=== PATIENT | female | born 1955 | race Caucasian/White ===

== ENCOUNTER 2019-02-19 18:40 | Emergency (ER) | payer MEDICARE ==
--- NOTE | 2019-02-19 19:05 | ER Document Report ---
ED Medical Screen (RME) - General Chief Complaint: Fall Stated Complaint: FALL/DIZZINESS Time Seen by Provider: 02/19/19 19:00 - [facility] Notes: 02/19/19 19:03 Patient is a 63-year-old female with a history of COPD, CABG 1 year ago erasmo roximately, hypertension, CHF who presents complaining of having an episode of dizziness and falling to the ground prior to arrival. Patient states that she got up and was walking towards the door when she felt dizzy and fell to the ground without losing consciousness. Patient states that her legs felt really weak at that time. She did not injure any other part of her body that she is aware of. Patient states that she has chronic issues with shortness of breath but nothing acute. Her Accu-Chek at that time was 94. She is otherwise been able to eat and drink without difficulty. She is urinating normally. No other concerns or complaints. Patient has not had recurrence of the dizziness. Denies KAPLAN, fever, neck pain, URI, CP, SOB, Abd pain, dysuria, back pain, or rash. I have treated and performed a rapid initial assessment of this patient. A comprehensive ED assessment and evaluation of the patient, analysis of test results and completion of medical decision making process will be conducted by additional ED providers. PHYSICAL EXAMINATION: GENERAL: Well-appearing, well-nourished and in no acute distress. A&Ox4. Answers questions appropriately. LUNGS: diminished at base b/l. prolonged expiration. HEART: Regular rate and rhythm without murmurs, rubs, gallops. Extremities: 2+ pitting edema b/l LE's. NEUROLOGICAL: Normal speech, normal gait. PSYCH: Normal mood, normal affect. - Related Data Allergies/Adverse Reactions: Penicillins Allergy (Verified 02/19/19 18:42) Physical Exam - Vital signs Vitals: Temp Pulse Resp BP Pulse Ox 97.6 F 113 H 22 H 159/66 H 93 02/19/19 18:44 02/19/19 18:44 02/19/19 18:44 02/19/19 18:44 02/19/19 18:44 Course - Vital Signs Vital signs: Temp Pulse Resp BP Pulse Ox 97.6 F 113 H 22 H 159/66 H 93 02/19/19 18:44 02/19/19 18:44 02/19/19 18:44 02/19/19 18:44 02/19/19 18:44
[2019-02-19] MEDS ORDERED: NORMAL SALINE 1000 ML 1,000 ML IV ONE (19:06)
--- NOTE | 2019-02-19 19:37 | RADIOLOGY REPORT (SQ) ---
EXAM DESCRIPTION: CHEST SINGLE VIEW COMPLETED DATE/TIME: 02/19/2019 7:22 pm REASON FOR STUDY: dizziness COMPARISON: None. NUMBER OF VIEWS: One view. TECHNIQUE: Single frontal radiographic view of the chest acquired. LIMITATIONS: None. FINDINGS: LUNGS AND PLEURA: No consolidation, masses or pneumothorax. No significant pleural effusio n. MEDIASTINUM AND HILAR STRUCTURES: Age-appropriate. HEART AND VASCULAR STRUCTURES: Prior CABG. BONES: No acute findings. HARDWARE: CABG hardware. OTHER: No other significant finding. IMPRESSION: No consolidation or significant pleural effusion. TECHNICAL DOCUMENTATION: JOB ID: [id number] [place]-72 2010 [email or web address]- All Rights Reserved Reading location - IP/workstation name: [employer]
[2019-02-19 19:43] LABS: ABSOLUTE EOSINOPHILS # (AUTO) 0.1 10^3/uL (0.0-0.6); ABSOLUTE LYMPHOCYTES (AUTO) 0.8 10^3/uL (0.5-4.7); ABSOLUTE MONOCYTES (AUTO) 0.7 10^3/uL (0.1-1.4); BASOPHILS % (AUTO) 0.4 % (0-2); EOSINOPHILS % (AUTO) 1.6 % (0-6); HEMATOCRIT 34.3 % (36.0-47.0); HEMOGLOBIN 10.4 g/dL (12.0-15.5); LYMPHOCYTES % (AUTO) 11.9 % (13-45); MEAN CORPUSCULAR HGB CONC 30.3 g/dL (32.0-36.0); MONOCYTES % (AUTO) 10.9 % (3-13); PLATELET COUNT 181 10^3/uL (150-450); RED BLOOD COUNT 5.77 10^6/uL (3.72-5.28); SEGMENTED NEUTROPHILS % (AUTO) 75.2 % (42-78); TOTAL CELLS COUNTED % (AUTO) 100 %; WHITE BLOOD COUNT 6.7 10^3/uL (4.0-10.5)
[2019-02-19 19:44] LABS: APPEARANCE,URINE CLEAR; BILIRUBIN,URINE NEGATIVE (NEGATIVE); COLOR,URINE YELLOW; GLUCOSE, URINE NEGATIVE (NEGATIVE); KETONES,URINE NEGATIVE (NEGATIVE); LEUKOCYTE ESTERASE,URINE NEGATIVE (NEGATIVE); NITRITE,URINE NEGATIVE (NEGATIVE); PROTEIN,URINE NEGATIVE (NEGATIVE); URINE SPECIFIC GRAVITY 1.011; UROBILINOGEN,URINE NEGATIVE mg/dL (<2.0)
[2019-02-19 20:02] LABS: ALANINE AMINOTRANSFERASE 20 U/L (9-52); ALBUMIN 3.8 g/dL (3.5-5.0); ALKALINE PHOSPHATASE 114 U/L (38-126); ANION GAP 6 (5-19); ASPARTATE AMINO TRANSFERASE 24 U/L (14-36); BILIRUBIN,DIRECT 0.2 mg/dL (0.0-0.4); BILIRUBIN,TOTAL 0.7 mg/dL (0.2-1.3); BLOOD UREA NITROGEN 20 mg/dL (7-20); CALCIUM 9.5 mg/dL (8.4-10.2); CARBON DIOXIDE 32 mmol/L (22-30); CHLORIDE 103 mmol/L (98-107); GLUCOSE 125 mg/dL (75-110); POTASSIUM 3.7 mmol/L (3.6-5.0); SODIUM 140.5 mmol/L (137-145); TOTAL PROTEIN 6.8 g/dL (6.3-8.2)
[2019-02-19 20:13] LABS: NT PRO BNP 742 pg/mL (5-900)
[2019-02-19 20:14] LABS: TROPONIN I < 0.012 ng/mL
[2019-02-19 20:18] LABS: ANISOCYTOSIS 3+
[2019-02-19 20:19] LABS: OVALOCYTES 1+; POIKILOCYTOSIS 2+; TARGET CELLS SLIGHT
[2019-02-19 20:20] LABS: MEAN CORPUSCULAR VOLUME 59 fl (80-97)
[2019-02-19 20:23] LABS: PLATELET COMMENT ADEQUATE
--- NOTE | 2019-02-19 22:05 | ER Document Report ---
ED General - General Chief Complaint: Fall Stated Complaint: FALL/DIZZINESS Time Seen by Provider: 02/19/19 19:00 Notes: Patient is a pleasant 63-year-old female who is down visiting from [place]. Patient has a history of COPD. She does not smoke. She is down visiting her daughter. Today she got up out of bed to go to dinner. When she did she fell on the floor. She did pass out. Patient admits that she has not been eating or drinking much today. She does feel that she is will be dehydrated. Her daughter says that she does get short of breath when she gets up and walks around. This is been ongoing for a long period time. Her doctor at home want to place her on supplement oxygen but the patient held off until because her was sick. Her did recently . She has not followed back up with her doctor regards to being placed on supplemental oxygen. Patient denies any focal weakness or numbness. No chest pain. No shortness of breath. No headache. No other complaints at this time. - Related Data Allergies/Adverse Reactions: Penicillins Allergy (Verified 02/19/19 18:42) Past Medical History - Social History Smoking Status: Former Smoker Chew tobacco use (# tins/day): No Frequency of alcohol use: None Drug Abuse: None Family History: Reviewed & Not Pertinent Patient has suicidal ideation: No Patient has homicidal ideation: No Renal/ Medical History: Denies: Hx Peritoneal Dialysis Review of Systems - Review of Systems Notes: My Normal Review Basic REVIEW OF SYSTEMS: CONSTITUTIONAL : Denies fever, chills, or sweats. Denies recent illness. CARDIOVASCULAR: Denies chest pain. RESPIRATORY: Denies cough, cold, or chest congestion. Denies shortness of breath, difficulty breathing, or wheezing. GASTROINTESTINAL: Denies abdominal pain. Denies nausea, vomiting, or diarrhea. GENITOURINARY: Denies difficulty urinating, painful urination, burning, frequency, or blood in urine. MUSCULOSKELETAL: Lower back pain SKIN: Denies rash or skin lesions. NEUROLOGICAL: Syncopal episode. Denies headache. Denies weakness or paralysis or loss of use of either side. Denies problems with gait or speech. Denies sensory or motor loss. ALL OTHER SYSTEMS REVIEWED AND NEGATIVE. Physical Exam - Vital signs Vitals: Temp Pulse Resp BP Pulse Ox 97.6 F 113 H 22 H 159/66 H 93 02/19/19 18:44 02/19/19 18:44 02/19/19 18:44 02/19/19 18:44 02/19/19 18:44 - Notes Notes: General Appearance: Well nourished, alert, cooperative, no acute distress, no obvious discomfort. Well-appearing. Vitals: reviewed, See vital signs table. Head: no swelling or tenderness to the head Eyes: PERRL, EOMI, Conjuctiva clear Mouth: No decreasd moisture Throat: No tonsillar inflammation, No airway obstruction, No lymphadenopathy Neck: Supple, no neck tenderness, No thyromegaly Lungs: No wheezing, No rales, No rhonci, No accessory muscle use, good air exchange bilaterally. Heart: Normal rate, Regular rythm, No murmur, no rub Abdomen: Normal BS, soft, No rigidity, No abdominal tenderness, No guarding, no rebound, no abdominal masses, no organomegaly Back: Tenderness palpation of the lumbar paraspinal muscular. Pain with any m ovement of her back. Extremities: strength 5/5 in all extremities, good pulses in all extremities, no swelling or tenderness in the extremities, no edema. Skin: warm, dry, appropriate color, no rash Neuro: speech clear, oriented x 3, normal affect, responds appropriately to questions. Renal nerves II through XII are intact. Distal sensation intact. Patient moves all extremities but difficult. Patient does have a slow gait which patient's daughter says is normal for her however she seems to be working little bit more slowly because her back is hurting her. Course - Re-evaluation Re-evalutation: 02/19/19 23:37 Patient's vital signs have normalized. Her heart rate is normal after receiving IV fluids. Her oxygen saturation off oxygen is around 93 to 94%. Her primary care physician I suggested to her that she use supplemental oxygen at home but she has not yet done this. When she gets up and walks around at bedside she obviously gets a little bit winded and oxygen saturation goes down to about 90%. She also does admit that she has not been eating or drinking much recently and the fact that she is a bit tachycardic when she arrived suggest that she was probably hypovolemic. Patient's daughter also confirms that she has not been drinking less since she came down and visited. She is feeling much improved aft er IV fluids. Laboratory evaluation is otherwise unremarkable. CT scan of the head was obtained which she is on Coumadin had a syncopal episode. CT scan is negative. She did have some back pain and CT scan lumbar spine is normal. Patient has no focal neurologic deficits noted on exam. I do not suspect PE and that she has no chest pain, currently not tachycardic, tachypneic, or hypoxic, and her Coumadin level is therapeutic. Also she has no new extremity pain or swelling. I feel she safe to be discharged home. I encouraged her return to ER immediately if she has severe headache, chest pain, difficulty breathing, fevers, or if she feels unwell. Patient agrees with plan will be discharged home. Dictation of this chart was performed using voice recognition software; therefore, there may be some unintended grammatical errors. - Vital Signs Vital signs: Temp Pulse Resp BP Pulse Ox 97.4 F 78 18 174/84 H 93 02/20/19 02:37 02/20/19 02:37 02/20/19 02:37 02/20/19 02:37 02/19/19 18:44 - Laboratory Result Diagrams: 02/19/19 19:24 02/19/19 19:24 Laboratory results interpreted by me: 02/19/19 02/19/19 02/19/19 19:24 19:24 19:24 RBC 5.77 H Hgb 10.4 L Hct 34.3 L MCV 59 L MCH 18.0 L MCHC 30.3 L RDW 22.0 H Lymphocytes % 11.9 L PT 23.9 H Carbon Dioxide 32 H Creatinine 1.44 H Est GFR ( Amer) 44 L Est GFR (Non-Af Amer) 37 L Glucose 125 H POC Glucose 02/19/19 19:31 RBC Hgb Hct MCV MCH MCHC RDW Lymphocytes % PT Carbon Dioxide Creatinine Est GFR ( Amer) Est GFR (Non-Af Amer) Glucose POC Glucose 124 H - EKG Interpretation by Me Additional EKG results interpreted by me: 02/19/19 22:04 EKG is reviewed and interpreted by me. EKG shows sinus rhythm with a rate of [address] segment elevation or depression. No ischemic T wave inversions. VA interval, QRS duration, QT intervals are within normal range. No old EKG available for comparison. Discharge - Discharge Clinical Impression: Syncope Qualifiers: Syncope type: unspecified Qualified Code(s): R55 - Syncope and collapse Condition: Good Disposition: HOME, SELF-CARE Additional Instructions: Please make sure you drink several glasses of water a day over the next several days. Please avoid caffeinated beverages because it may make you become more dehydrated. Please talk to your doctor about having the option of having supplemental oxygen at home as I suspect when you get up and walk around for l wei periods of time it is likely your oxygen level starts to drop. Please walk with a cane. Please make sure that you are careful and get up and walk around and go slowly. If you start to become dizzy or lightheaded then he should sit down immediately. Please return to ER immediately if you have recurrence passing out episode, any shortness of breath, dizziness, fevers, headache, chest pain, or if you feel unwell.
[2019-02-19] MEDS ORDERED: IPRATROPIUM/ALBUTEROL 0.5-2.5 MG/3 ML AMPUL NEB ONE (22:34)
[2019-02-19 22:42] LABS: INTERNATIONAL RATION (INR) 2.03; PROTHROMBIN TIME 23.9 SEC (11.4-15.4)
--- NOTE | 2019-02-19 23:22 | RADIOLOGY REPORT (SQ) ---
CT HEAD WITHOUT IV CONTRAST HISTORY: Syncope on coumadin. COMPARISON: None. TECHNIQUE: CT scan of the brain without IV contrast. This exam was performed according to our departmental dose-optimization program, which includes automated exposure control, adjustment of the mA and/or kV according to patient size and/or use of iterative reconstruction technique. FINDINGS: Diffuse involutional changes are present. There are scattered areas of hypoattenuation within the periventricular white matter, which likely represent chronic microvascular ischemia. No evidence of acute infarction, intracranial hemorrhage, extra-axial fluid collection, or midline shift. No air-fluid levels are seen in the paranasal sinuses to suggest acute sinusitis. No depressed skull fracture. IMPRESSION: 1. No acute intracranial findings. 2. Senescent changes with chronic microvascular ischemia.
--- NOTE | 2019-02-19 23:24 | RADIOLOGY REPORT (SQ) ---
CT LUMBAR SPINE WITHOUT IV CONTRAST HISTORY: Lower back pain. Trauma. COMPARISON: None. TECHNIQUE: CT scan of the lumbar spine without IV contrast. This exam was performed according to our departmental dose-optimization program, which includes automated exposure control, adjustment of the mA and/or kV according to patient size and/or use of iterative reconstruction technique. FINDINGS: No acute compression fracture is seen. The lumbar alignment is maintained. There are multilevel disc bulges but without advanced canal stenosis identified. No advanced canal stenosis is identified. The sacroiliac joints are intact. IMPRESSION: No acute compression fracture of the lumbar spine.
[2019-02-20 02:38] VITALS: BP 174/84
--- NOTE | 2019-02-20 07:55 | EKG REPORT ---
SEVERITY:- NORMAL ECG - SINUS RHYTHM : Confirmed by: Gale Michelle MD 20-Feb-2019 07:55:04
[2019-02-20 14:43] LABS: PATH REVIEW PATHOLOGIST REVIEWED
== END 2019-02-20 01:00 | disposition home or self-care (01) ==
LOC: ER 18:40
DX: R55 Syncope and collapse (principal); R42 Dizziness and giddiness; J44.9 Chronic obstructive pulmonary disease, unspecified; Z88.0 Allergy status to penicillin; Z87.891 Personal history of nicotine dependence; Z79.01 Long term (current) use of anticoagulants
CPT/HCPCS: 93005; 94640; 99283; 96360; 96361; 36415; 82962; 85025; 85610; 80053; 81001; 84484; 83880; 71045; 70450; 72131; 93010; J7030; A9270; J7620

== ENCOUNTER 2019-03-08 13:55 | Inpatient (IN) | payer MEDICARE ==
[2019-03-08] MEDS ORDERED: NORMAL SALINE 1000 ML 1,000 ML IV ONE ×2 (15:20→19:46)
[2019-03-08 15:29] LABS: ALANINE AMINOTRANSFERASE 26 U/L (9-52); ALBUMIN 2.8 g/dL (3.5-5.0); ALKALINE PHOSPHATASE 71 U/L (38-126); ANION GAP 14 (5-19); ASPARTATE AMINO TRANSFERASE 29 U/L (14-36); BILIRUBIN,DIRECT 0.4 mg/dL (0.0-0.4); BILIRUBIN,TOTAL 0.6 mg/dL (0.2-1.3); BLOOD UREA NITROGEN 71 mg/dL (7-20); CARBON DIOXIDE 20 mmol/L (22-30); CHLORIDE 105 mmol/L (98-107); CREATINE KINASE 39 U/L (30-135); GLUCOSE 212 mg/dL (75-110); POTASSIUM 4.1 mmol/L (3.6-5.0); SODIUM 138.9 mmol/L (137-145); TOTAL PROTEIN 5.3 g/dL (6.3-8.2)
--- NOTE | 2019-03-08 15:34 | ER Document Report ---
ED Dizziness/Weakness - General Chief Complaint: General Weakness Stated Complaint: GENERAL WEAKNESS Time Seen by Provider: 03/08/19 15:09 Mode of Arrival: Medic Information source: Patient, Relative - HPI Patient complains to provider of: Near-syncope, Weakness - Pt. is visiting [place] and is scheduled toreturn to [place] early next week. She is IDDM who felt weak earlier today and lightheaded. She did not have a syncopal episode. Her recently and she is still grieving. - Related Data Allergies/Adverse Reactions: Penicillins Allergy (Verified 02/19/19 18:42) Past Medical History - Social History Smoking Status: Never Smoker Frequency of alcohol use: None Drug Abuse: None Family History: Reviewed & Not Pertinent Patient has suicidal ideation: No Patient has homicidal ideation: No - Past Medical History Cardiac Medical History: Reports: Hx Congestive Heart Failure, Hx Heart Attack, Hx Hypercholesterolemia, Hx Hypertension Pulmonary Medical History: Reports: Hx COPD Endocrine Medical History: Reports: Hx Diabetes Mellitus Type 2 Renal/ Medical History: Denies: Hx Peritoneal Dialysis Psychiatric Medical History: Reports: Hx Depression Past Surgical History: Reports: Hx Cardiac Catheterization, Hx Cardiac Surgery - triple bypass, Hx Vascular Surgery - carotid Review of Systems - Review of Systems Constitutional: See HPI, Weakness EENT: No symptoms reported Cardiovascular: No symptoms reported Respiratory: No symptoms reported Gastrointestinal: No symptoms reported Musculoskeletal: No symptoms reported Neurological/Psychological: See HPI, Weakness -: Yes All other systems reviewed and negative Physical Exam - Vital signs Vitals: Resp Pulse Ox 17 98 03/08/19 14:01 03/08/19 14:01 - General General appearance: Lethargic In distress: None - HEENT Head: Normocephalic Mouth/Lips: Normal Mucous membranes: Normal Pharynx: Normal Neck: Normal - Respiratory Respiratory status: No respiratory distress Breath sounds: Normal - Cardiovascular Rhythm: Regular Heart sounds: Normal auscultation Murmur: No - Abdominal Inspection: Normal Tenderness: Nontender - Rectal Tenderness: No Stool: Heme positive, Black Hemorrhoids: None - Extremities General upper extremity: Normal inspection, Normal strength General lower extremity: Normal inspection, Normal strength - Neurological Neuro grossly intact: Yes Cognition: Normal Orientation: AAOx4 Speech: Normal Motor strength normal: LUE, RUE, LLE, RLE Sensory: Normal Course - Re-evaluation Re-evalutation: 03/08/19 15:50 we have attempted to ambulate her but upon getting her to sit up at the side of the bed, she stated she was "too weak" to do so and had to lie back down. 03/08/19 16:46 I have re-evaluated this pt. and her exam is unchanged. I have ordered blood for her and will give her vitamin K for her coagulopathy. I will call hospitalist for admission. 03/08/19 17:15 I have spoken to Dr. Sow and he will admit only if pt. can get scoped here soon per Dr. Flores. I have a call into Dr. Correia and currently he is in OR and nurse says he will return call when he's done. - Vital Signs Vital signs: Temp Pulse Resp BP Pulse Ox 98.8 F 71 19 150/66 H 98 03/09/19 08:00 03/09/19 08:00 03/09/19 08:00 03/09/19 08:00 03/09/19 08:00 - Laboratory Result Diagrams: 03/09/19 07:00 03/09/19 07:00 Laboratory results interpreted by me: 03/08/19 03/08/19 03/08/19 13:30 15:47 15:50 WBC 10.9 H RBC 2.14 L Hgb 4.1 L* Hct 13.2 L* MCV 62 L MCH 19.1 L MCHC 31.0 L RDW 24.2 H Seg Neuts % (Manual) 94 H Lymphocytes % (Manual) 3 L Abs Neuts (Manual) 10.2 H Abs Lymphs (Manual) 0.3 L PT INR Carbon Dioxide 20 L BUN 71 H Creatinine 1.66 H Est GFR ( Amer) 38 L Est GFR (Non-Af Amer) 31 L Glucose 212 H Total Protein 5.3 L Albumin 2.8 L Crossmatch See Detail 03/08/19 15:50 WBC RBC Hgb Hct MCV MCH MCHC RDW Seg Neuts % (Manual) Lymphocytes % (Manual) Abs Neuts (Manual) Abs Lymphs (Manual) PT 74.4 H* INR 8.69 H* Carbon Dioxide BUN Creatinine Est GFR ( Amer) Est GFR (Non-Af Amer) Glucose Total Protein Albumin Crossmatch - EKG Interpretation by Me EKG shows normal: Sinus rhythm Rate: Normal Rhythm: NSR - nsr without acute change - Consults miguel Flores Time consulted: 17:10 - nurse answered -- he will call back when done in OR Critical Care Note - Critical Care Note Total time excluding time spent on procedures (mins): 30 Discharge - Discharge Clinical Impression: Severe anemia GI bleed Qualifiers: GI bleed type/associated pathology: melena Qualified Code(s): K92.1 - Melena Condition: Fair Disposition: ADMITTED INPATIENT Admitting Provider: dut Unit Admitted: ICU
[2019-03-08 15:37] LABS: CREATINE KINASE MB 0.44 ng/mL (<4.55)
[2019-03-08 15:42] LABS: TROPONIN I < 0.012 ng/mL
[2019-03-08 16:15] LABS: MEAN CORPUSCULAR HEMOGLOBIN 19.1 pg (27.0-33.4); PLATELET COUNT 203 10^3/uL (150-450); RED BLOOD COUNT 2.14 10^6/uL (3.72-5.28); RED CELL DISTRIBUTION WIDTH 24.2 % (11.5-14.0); WHITE BLOOD COUNT 10.9 10^3/uL (4.0-10.5)
[2019-03-08 16:18] LABS: HEMATOCRIT 13.2 % (36.0-47.0); HEMOGLOBIN 4.1 g/dL (12.0-15.5); MEAN CORPUSCULAR VOLUME 62 fl (80-97)
[2019-03-08] MEDS ORDERED: NORMAL SALINE 250 ML IV PRN ×3 (16:29→19:16)
[2019-03-08 16:30] LABS: PROTHROMBIN TIME 74.4 SEC (11.4-15.4)
[2019-03-08 16:35] LABS: ABSOLUTE LYMPHOCYTES# (MANUAL) 0.3 10^3/uL (0.5-4.7); ABSOLUTE MONOCYTES # (MANUAL) 0.3 10^3/uL (0.1-1.4); BASOPHILS % (MANUAL) 0 % (0-2); EOSINOPHILS % (MANUAL) 0 % (0-6); LYMPHOCYTES % (MANUAL) 3 % (13-45); MONOCYTES % (MANUAL) 3 % (3-13); NUCLEATED RED BLOOD CELLS 2 /100 WBC (0); PLATELET COMMENT ADEQUATE; SEGMENTED NEUTROPHILS % (MAN) 94 % (42-78); TOTAL CELLS COUNTED 100
[2019-03-08 16:38] LABS: ANISOCYTOSIS 3+; HYPOCHROMASIA 1+; OVALOCYTES 1+; POIKILOCYTOSIS 1+; POLYCHROMASIA 2+
[2019-03-08] MEDS ORDERED: PHYTONADIONE 5 MG TABLET PO ONE (16:38)
[2019-03-08 16:40] LABS: SCHISTOCYTES SLIGHT; TARGET CELLS SLIGHT
[2019-03-08] MEDS ORDERED: PANTOPRAZOLE SODIUM 40 MG VIAL IV ONE (17:12)
[2019-03-08] MEDS ORDERED: NORMAL SALINE 1000 ML 500 ML IV ONE (17:20)
[2019-03-08 18:45] LABS: APPEARANCE,URINE CLEAR; BILIRUBIN,URINE NEGATIVE (NEGATIVE); COLOR,URINE YELLOW; GLUCOSE, URINE NEGATIVE (NEGATIVE); KETONES,URINE NEGATIVE (NEGATIVE); LEUKOCYTE ESTERASE,URINE NEGATIVE (NEGATIVE); NITRITE,URINE NEGATIVE (NEGATIVE); PROTEIN,URINE NEGATIVE (NEGATIVE); URINE SPECIFIC GRAVITY 1.012; UROBILINOGEN,URINE NEGATIVE mg/dL (<2.0)
[2019-03-08] MEDS ORDERED: ONDANSETRON HCL INJ/PF 4 MG/2 ML SDV IV PRN (19:10)
[2019-03-08] MEDS ORDERED: ACETAMINOPHEN 325 MG TABLET PO PRN (19:10)
[2019-03-08] MEDS ORDERED: NORMAL SALINE 1000 ML 1,000 ML IV PRN (19:10)
[2019-03-08] MEDS ORDERED: HYDRALAZINE HCL INJ/PF 20 MG/1 ML SDV IV PRN (19:16)
--- NOTE | 2019-03-08 19:32 | Progress Note ---
Provider Note Provider Note: patients status worsening. called by nursing in ED- states her Bp is now 80s and 70s on repeat check. Advised nursing to give 1 L of saline bolus stat, she still running her first bag of blood. Spoke with surgeon on-call regarding possible active GI bleed and hypotension- requested emergent EGD but surgeon states that it is not recommended given her hypercoagulable state at this time. Ordered 2 units of FFP and another 2 units of blood. I have requested surgeon to place a central line. Given that her blood pressure is now less than 90 and she is hypotensive we will send her to the ICU for possible pressors if needed.
--- NOTE | 2019-03-08 20:47 | PDOC CONSULTATION ---
Consultation Consult Date: 03/08/19 Attending physician:: MAKI MORRIS Provider Consulted: LUIS CARLOS MEEK Consult reason:: GI bleed History of Present Illness Admission Date/PCP: 03/08/19 19:27 Patient complains of: Weakness History of Present Illness: ZORAN JONES is a 63 year old female Presents emergency department via ground rescue requested by her family because of generalized weakness. Patient lives in [place] and weakness, gen eralized fatigue, and decreased mobility. She was seen last week in the emergency department where she was found to have a hemoglobin of 10.1. He was discharged home on supportive care. Her last colonoscopy was approximately 5 years ago but there are no records to verify this.. She has been cared for by her son. Apparently she has had worsening weakness, diminished p.o. intake, dark stools, decreased urine output. She is visiting [facility]. Over the last month she has had progressive weakness, decreased p.o. intake, decreased mobility, dark stools, decreased urine output. In the emergency department she was found to have a second blood pressure, and a hemoglobin of 4 0.1, and a profound coagulopathy. Patient is on Coumadin, dose unknown, for diffuse athero-sclerotic disease. She is being admitted to the hospital service for further resuscitation, blood transfusion, and eventual endoscopy. She is being transferred to the intensive care unit because of sepsis. Past Medical History Cardiac Medical History: Reports: Congestive Heart Failure, Myocardial Infarction, Hyperlipidema, Hypertension Pulmonary Medical History: Reports: Chronic Obstructive Pulmonary Disease (COPD) Endocrine Medical History: Reports: Diabetes Mellitus Type 2 Psychiatric Medical History: Reports: Depression Past Surgical History Past Surgical History: Left carotid endarterectomy; coronary artery bypass grafting; hysterectomy Past Surgical History: Reports: Cardiac Catheterization, Vascular Surgery - carotid Social History Smoking Status: Never Smoker Frequency of Alcohol Use: Rare Hx Recreational Drug Use: No - Advance Directive Resuscitation Status: Full Code Family History Family History: None, Reviewed & Not Pertinent Parental Family History Reviewed: No Children Family History Reviewed: No Sibling(s) Family History Reviewed.: No Medication/Allergy Home Medications: Amlodipine Besylate [Norvasc 5 mg Tablet] 5 mg PO Q12 03/08/19 Aspirin [Ecotrin 81 mg EC Tablet] 81 mg PO Q12 03/08/19 Atorvastatin Calcium [Lipitor 80 mg Tablet] 80 mg PO QHS 03/08/19 Citalopram Hydrobromide [Celexa 10 mg Tablet] 10 mg PO DAILY 03/08/19 Furosemide [Lasix 20 mg Tablet] 20 mg PO DAILY 03/08/19 Hydralazine HCl [Apresoline 50 mg Tablet] 50 mg PO Q8 03/08/19 Insulin Glargine,Hum.rec.anlog [Lantus Insulin 100 Unit/1 ml 10 ml] 16 units SQ QHS 03/08/19 Metoprolol Tartrate [Lopressor 25 mg Tablet] 12.5 mg PO Q12 03/08/19 Sitagliptin Phosphate [Januvia] 50 mg PO DAILY 03/08/19 Warfarin Sodium [Coumadin 5 mg Tablet] 5 mg PO DAILY 03/08/19 Allergies/Adverse Reactions: Penicillins Allergy (Verified 02/19/19 18:42) Review of Systems ROS unobtainable: Due to mental status, Other - Vision altered; unable to conduct HPI Physical Exam Vital Signs: Temp Pulse Resp BP Pulse Ox 98.1 F 86 26 H 137/60 H 98 03/08/19 18:39 03/08/19 18:39 03/08/19 19:46 03/08/19 19:46 03/08/19 19:46 Intake & Output 03/07/19 03/08/19 03/09/19 06:59 06:59 06:59 Intake Total 500 Balance 500 Weight 91 kg General appearance: PRESENT: hard of hearing, morbidly obese, other - Complexion poor Head exam: PRESENT: normocephalic Eye exam: PRESENT: EOMI Mouth exam: PRESENT: other - Poor dentition Neck exam: PRESENT: full ROM Cardiovascular exam: PRESENT: other - Normal cardiac Pulses: PRESENT: normal carotid pulses, normal radial pulses GI/Abdominal exam: PRESENT: other - Diffuse abdominal tenderness but no rigidity Rectal exam: PRESENT: deferred, other - Patient had a melanotic stool earlier Extremities exam: PRESENT: pedal edema Musculoskeletal exam: PRESENT: other - Unable to assess Neurological exam: PRESENT: other - Allergy, follows some commands Focused psych exam: PRESENT: other - Lethargic Skin exam: PRESENT: dry Results Laboratory Results: 03/08/19 15:50 03/08/19 13:30 03/08/19 03/08/19 03/08/19 13:30 13:30 15:47 WBC Cancelled RBC Cancelled Hgb Cancelled Hct Cancelled MCV Cancelled MCH Cancelled MCHC Cancelled RDW Cancelled Plt Count Cancelled Seg Neutrophils % Cancelled Lymphocytes % Cancelled Monocytes % Cancelled Eosinophils % Cancelled Basophils % Cancelled Absolute Neutrophils Cancelled Absolute Lymphocytes Cancelled Absolute Monocytes Cancelled Absolute Eosinophils Cancelled Absolute Basophils Cancelled Sodium 138.9 Potassium 4.1 Chloride 105 Carbon Dioxide 20 L Anion Gap 14 BUN 71 H Creatinine 1.66 H Est GFR ( Amer) 38 L Est GFR (Non-Af Amer) 31 L Glucose 212 H Calcium 9.0 Total Bilirubin 0.6 AST 29 ALT 26 Alkaline Phosphatase 71 Total Protein 5.3 L Albumin 2.8 L Urine Color Urine Appearance Urine pH Ur Specific [place] Urine Protein Urine Glucose (UA) Urine Ketones Urine Blood Urine Nitrite Ur Leukocyte Esterase Urine RBC (Auto) Blood Type B POSITIVE Antibody Screen NEGATIVE 03/08/19 03/08/19 15:50 18:16 WBC 10.9 H RBC 2.14 L Hgb 4.1 L* Hct 13.2 L* MCV 62 L MCH 19.1 L MCHC 31.0 L RDW 24.2 H Plt Count 203 Seg Neutrophils % Not Reportable Lymphocytes % Not Reportable Monocytes % Not Reportable Eosinophils % Not Reportable Basophils % Not Reportable Absolute Neutrophils Not Reportable Absolute Lymphocytes Not Reportable Absolute Monocytes Not Reportable Absolute Eosinophils Not Reportable Absolute Basophils Not Reportable Sodium Potassium Chloride Carbon Dioxide Anion Gap BUN Creatinine Est GFR ( Amer) Est GFR (Non-Af Amer) Glucose Calcium Total Bilirubin AST ALT Alkaline Phosphatase Total Protein Albumin Urine Color YELLOW Urine Appearance CLEAR Urine pH 5.0 Ur Specific [place] 1.012 Urine Protein NEGATIVE Urine Glucose (UA) NEGATIVE Urine Ketones NEGATIVE Urine Blood NEGATIVE Urine Nitrite NEGATIVE Ur Leukocyte Esterase NEGATIVE Urine RBC (Auto) 0 Blood Type Antibody Screen 03/08/19 03/08/19 13:30 13:30 Creatine Kinase 39 CK-MB (CK-2) 0.44 Troponin I < 0.012 Assessment & Plan - Diagnosis (1) Gastrointestinal bleed Qualifiers: GI bleed type/associated pathology: melena Qualified Code(s): K92.1 - Melena Is this a current diagnosis for this admission?: Yes Plan: Impression: Generalized, multiorgan system deterioration with anemia, dehydration, acute renal insufficiency, over anticoagulated, and chronic GI bleed now with hypotension. Recommendations: 1. Admit to hospitalist service, transferred to ICU, blood and fluid resuscitation, FFP and vitamin K to reverse hyper coagulable state 2. We will place central line in the ICU. 3. We will perform upper and lower endoscopy when patient stabilizes likely the next 24 to 48 hours. The above discussed with the hospitalist service. (2) Obesity Is this a current diagnosis for this admission?: Yes (3) Acute delirium Is this a current diagnosis for this admission?: Yes (4) Chronic anticoagulation Is this a current diagnosis for this admission?: Yes (5) Diabetes mellitus type 2 in obese Is this a current diagnosis for this admission?: Yes (6) Supratherapeutic INR Is this a current diagnosis for this admission?: Yes - Time Time Spent: 50 to 70 Minutes Smoking Cessation Education: over 10 minutes Medications reviewed and adjusted accordingly: Yes Anticipated discharge: Home - Inpatient Certification Based on my medical assessment, after consideration of the patient's comorbidities, presenting symptoms, or acuity I expect that the services needed warrant INPATIENT care.: Yes I certify that my determination is in accordance with my understanding of Medicare's requirements for reasonable and necessary INPATIENT services [42 CFR 412.3e].: Yes Medical Necessity: Need for IV Antibiotics
[2019-03-08] MEDS ORDERED: LIDOCAINE 1% INJ-PF (10 MG/ML) 30 ML SDV ONE (21:56)
[2019-03-08] MEDS ORDERED: NORMAL SALINE INJ/PF 0.9% 10 ML SDV IV PRN (22:14)
--- NOTE | 2019-03-08 22:31 | Operative Report ---
Operative Report DATE OF SURGERY: 03/08/19 PREOPERATIVE DIAGNOSIS: Sepsis; anemia; GI bleed POSTOPERATIVE DIAGNOSIS: Same OPERATION: 1. Focused U/s the right neck. 2. U/s directed placement of right IJ triple lumen catheter. 3. Interpretation of portable cxray SURGEON: LUIS CARLOS MEEK ANESTHESIA: Local TISSUE REMOVED OR ALTERED: none COMPLICATIONS: none ESTIMATED BLOOD LOSS: scant INTRAOPERATIVE FINDINGS: see below PROCEDURE: Permit signed. Patient Placed in Trendelenburg position; right neck exposed, prepped and draped in a sterile fashion; using u/s, a triple lumen access CVP catheter was threaded into to the right IJ without difficulty; excellent blood flow and flush through all three lumens; biopatch and sutures appleid; op site applied. Post op chris showed no PTX, and line in good position. Staff may use catheter.
--- NOTE | 2019-03-08 22:45 | RADIOLOGY REPORT (SQ) ---
EXAM DESCRIPTION: XR CHEST 1 VIEW COMPLETED DATE/TME: 03/08/2019 00:00 CLINICAL HISTORY: 63 years Female, TLC placement COMPARISON:Feb 19 2019 NUMBER OF VIEWS/TECHNIQUE: 1/AP FINDINGS: Adequate lung volume, clear parenchyma, mildly enlarged cardiac silhouette, atherosclerosis, and intact bony thorax. Adequate appearing right jugular central line. Sternotomy. Cardiac/mediastinal hardware/clips. IMPRESSION: No acute cardiopulmonary findings.
[2019-03-08] MEDS: PANTOPRAZOLE SODIUM 40 MG VIAL IV SCH (23:09)
[2019-03-09 07:26] LABS: ABSOLUTE LYMPHOCYTES (AUTO) 0.9 10^3/uL (0.5-4.7); ABSOLUTE MONOCYTES (AUTO) 1.5 10^3/uL (0.1-1.4); ABSOLUTE NEUT (AUTO) 10.5 10^3/uL (1.7-8.2); BASOPHILS % (AUTO) 0.2 % (0-2); HEMATOCRIT 27.4 % (36.0-47.0); LYMPHOCYTES % (AUTO) 6.7 % (13-45); MEAN CORPUSCULAR HEMOGLOBIN 26.7 pg (27.0-33.4); MEAN CORPUSCULAR HGB CONC 33.8 g/dL (32.0-36.0); MONOCYTES % (AUTO) 11.4 % (3-13); PLATELET COUNT 130 10^3/uL (150-450); RED BLOOD COUNT 3.48 10^6/uL (3.72-5.28); RED CELL DISTRIBUTION WIDTH 25.8 % (11.5-14.0); SEGMENTED NEUTROPHILS % (AUTO) 81.7 % (42-78); TOTAL CELLS COUNTED % (AUTO) 100 %; WHITE BLOOD COUNT 12.8 10^3/uL (4.0-10.5)
[2019-03-09 07:29] LABS: HEMOGLOBIN 9.3 g/dL (12.0-15.5); MEAN CORPUSCULAR VOLUME 79 fl (80-97)
[2019-03-09 07:41] LABS: ALANINE AMINOTRANSFERASE 30 U/L (9-52); ALBUMIN 3.1 g/dL (3.5-5.0); ALKALINE PHOSPHATASE 64 U/L (38-126); ANION GAP 7 (5-19); ASPARTATE AMINO TRANSFERASE 35 U/L (14-36); BILIRUBIN,DIRECT 0.3 mg/dL (0.0-0.4); BILIRUBIN,TOTAL 0.7 mg/dL (0.2-1.3); BLOOD UREA NITROGEN 54 mg/dL (7-20); CALCIUM 8.9 mg/dL (8.4-10.2); CARBON DIOXIDE 27 mmol/L (22-30); CHLORIDE 109 mmol/L (98-107); CHOLESTEROL 81.28 mg/dL (0-200); GLUCOSE 124 mg/dL (75-110); POTASSIUM 3.6 mmol/L (3.6-5.0); SODIUM 143.1 mmol/L (137-145); TOTAL PROTEIN 5.4 g/dL (6.3-8.2); TRIGLYCERIDES 100 mg/dL (<150)
[2019-03-09 07:52] LABS: DIRECT LDL 41 mg/dL (<100)
[2019-03-09 07:57] LABS: INTERNATIONAL RATION (INR) 1.98
[2019-03-09 08:00] LABS: ANISOCYTOSIS 3+; OVALOCYTES SLIGHT; PLATELET COMMENT DECREASED; POIKILOCYTOSIS SLIGHT; POLYCHROMASIA SLIGHT; TOXIC GRANULATION SLIGHT
[2019-03-09 08:09] LABS: PROTHROMBIN TIME 22.8 SEC (11.4-15.4)
[2019-03-09] MEDS ORDERED: POLYETHYLENE GLYCOL 3350 POWDER 17 GM/1 PACKET PO ONE (10:47)
[2019-03-09] MEDS ORDERED: BISACODYL 5 MG TABEC PO ONE ×4 (11:00→23:00)
[2019-03-09 12:13] LABS: INTERNATIONAL RATION (INR) 8.69
--- NOTE | 2019-03-09 13:48 | PDOC PROGRESS REPORT ---
Subjective Progress Note for:: 03/09/19 Subjective:: This is a 63-year-old female with a supra therapeutic INR and melanotic stools. She also has severe anemia, presenting with a hemoglobin of 4. Today, she reports feeling weak and tired. She denies chest pain, shortness of breath, abdominal pain, nausea, vomiting, hematemesis, hematochezia, blurry vision, difficulty hearing. Reason For Visit: UPPER GI BLEED,ACUTE DELIRIUM,CKD Physical Exam Vital Signs: Temp Pulse Resp BP Pulse Ox 98.6 F 70 16 142/63 H 95 03/09/19 12:00 03/09/19 12:00 03/09/19 12:00 03/09/19 12:00 03/09/19 12:00 Intake & Output 03/08/19 03/09/19 03/10/19 06:59 06:59 06:59 Intake Total 2429 480 Output Total 1625 400 Balance 804 80 Weight 89.7 kg 89.7 kg General appearance: PRESENT: obese Head exam: PRESENT: atraumatic, normocephalic Eye exam: PRESENT: EOMI, PERRLA. ABSENT: scleral icterus Mouth exam: PRESENT: moist, neck supple Neck exam: ABSENT: meningismus, tenderness, thyromegaly, tracheal deviation Respiratory exam: PRESENT: unlabored. ABSENT: chest wall tenderness, tachypnea Cardiovascular exam: PRESENT: RRR Pulses: PRESENT: normal radial pulses Vascular exam: PRESENT: normal capillary refill, pallor - mild GI/Abdominal exam: PRESENT: soft. ABSENT: distended, tenderness Rectal exam: PRESENT: deferred Extremities exam: ABSENT: clubbing Musculoskeletal exam: ABSENT: deformity Neurological exam: PRESENT: alert, awake, oriented to person, oriented to place, oriented to time, oriented to situation, CN II-XII grossly intact Psychiatric exam: ABSENT: agitated, anxious, depressed Focused psych exam: ABSENT: delusional Skin exam: ABSENT: cyanosis, erythema, jaundice Results Laboratory Results: 03/09/19 07:00 03/09/19 07:00 03/08/19 03/08/19 03/08/19 13:30 13:30 15:47 WBC Cancelled RBC Cancelled Hgb Cancelled Hct Cancelled MCV Cancelled MCH Cancelled MCHC Cancelled RDW Cancelled Plt Count Cancelled Seg Neutrophils % Cancelled Lymphocytes % Cancelled Monocytes % Cancelled Eosinophils % Cancelled Basophils % Cancelled Absolute Neutrophils Cancelled Absolute Lymphocytes Cancelled Absolute Monocytes Cancelled Absolute Eosinophils Cancelled Absolute Basophils Cancelled Sodium 138.9 Potassium 4.1 Chloride 105 Carbon Dioxide 20 L Anion Gap 14 BUN 71 H Creatinine 1.66 H Est GFR ( Amer) 38 L Est GFR (Non-Af Amer) 31 L Glucose 212 H Calcium 9.0 Phosphorus Magnesium Total Bilirubin 0.6 AST 29 ALT 26 Alkaline Phosphatase 71 Total Protein 5.3 L Albumin 2.8 L Triglycerides Cholesterol LDL Cholesterol Direct VLDL Cholesterol HDL Cholesterol TSH Urine Color Urine Appearance Urine pH Ur Specific [place] Urine Protein Urine Glucose (UA) Urine Ketones Urine Blood Urine Nitrite Ur Leukocyte Esterase Urine RBC (Auto) Blood Type B POSITIVE Antibody Screen NEGATIVE 03/08/19 03/08/19 03/09/19 15:50 18:16 07:00 WBC 10.9 H RBC 2.14 L Hgb 4.1 L* Hct 13.2 L* MCV 62 L MCH 19.1 L MCHC 31.0 L RDW 24.2 H Plt Count 203 Seg Neutrophils % Not Reportable Lymphocytes % Not Reportable Monocytes % Not Reportable Eosinophils % Not Reportable Basophils % Not Reportable Absolute Neutrophils Not Reportable Absolute Lymphocytes Not Reportable Absolute Monocytes Not Reportable Absolute Eosinophils Not Reportable Absolute Basophils Not Reportable Sodium Potassium Chloride Carbon Dioxide Anion Gap BUN Creatinine Est GFR ( Amer) Est GFR (Non-Af Amer) Glucose Calcium Phosphorus Magnesium Total Bilirubin AST ALT Alkaline Phosphatase Total Protein Albumin Triglycerides Cholesterol LDL Cholesterol Direct VLDL Cholesterol HDL Cholesterol TSH 0.48 Urine Color YELLOW Urine Appearance CLEAR Urine pH 5.0 Ur Specific [place] 1.012 Urine Protein NEGATIVE Urine Glucose (UA) NEGATIVE Urine Ketones NEGATIVE Urine Blood NEGATIVE Urine Nitrite NEGATIVE Ur Leukocyte Esterase NEGATIVE Urine RBC (Auto) 0 Blood Type Antibody Screen 03/09/19 03/09/19 07:00 07:00 WBC 12.8 H RBC 3.48 L Hgb 9.3 L D Hct 27.4 L MCV 79 L D MCH 26.7 L MCHC 33.8 RDW 25.8 H Plt Count 130 L Seg Neutrophils % 81.7 H Lymphocytes % 6.7 L Monocytes % 11.4 Eosinophils % 0.0 Basophils % 0.2 Absolute Neutrophils 10.5 H Absolute Lymphocytes 0.9 Absolute Monocytes 1.5 H Absolute Eosinophils 0.0 Absolute Basophils 0.0 Sodium 143.1 Potassium 3.6 Chloride 109 H Carbon Dioxide 27 Anion Gap 7 BUN 54 H Creatinine 1.43 H Est GFR ( Amer) 45 L Est GFR (Non-Af Amer) 37 L Glucose 124 H Calcium 8.9 Phosphorus 4.0 Magnesium 2.5 H Total Bilirubin 0.7 AST 35 ALT 30 Alkaline Phosphatase 64 Total Protein 5.4 L Albumin 3.1 L Triglycerides 100 Cholesterol 81.28 LDL Cholesterol Direct 41 VLDL Cholesterol 20.0 HDL Cholesterol 23 L TSH Urine Color Urine Appearance Urine pH Ur Specific [place] Urine Protein Urine Glucose (UA) Urine Ketones Urine Blood Urine Nitrite Ur Leukocyte Esterase Urine RBC (Auto) Blood Type Antibody Screen 03/08/19 03/08/19 13:30 13:30 Creatine Kinase 39 CK-MB (CK-2) 0.44 Troponin I < 0.012 Impressions: Chest X-Ray 03/08/19 00:00 IMPRESSION: No acute cardiopulmonary findings. Assessment & Plan - Diagnosis (1) Melena Is this a current diagnosis for this admission?: Yes (2) Anemia Qualifiers: Anemia type: unspecified type Qualified Code(s): D64.9 - Anemia, unspecified Is this a current diagnosis for this admission?: Yes (3) Supratherapeutic INR Is this a current diagnosis for this admission?: Yes - Plan Summary Plan Summary: This is a 63-year-old female with anemia, supratherapeutic INR, and melanotic stool. The patient's hemoglobin has responded appropriately to transfusion. Her vital signs are stable at this time. Her INR is much improved after vitamin K and FFP. We will recheck INR, CBC, and BMP tomorrow. Plan for bowel prep today, with EGD and colonoscopy tomorrow. This has been discussed at length with the patient. She is in agreement with the treatment plan. Risks/benefits discussed, informed consent obtained, and all questions answered.
[2019-03-09] MEDS ORDERED: DEXTROSE 50%-WATER 25 GM/50 ML DISP.SYRIN IV PRN ×2 (13:50)
[2019-03-09] MEDS ORDERED: GLUCAGON,HUMAN RECOMB 1 MG INJ IM PRN (13:50)
[2019-03-09] MEDS ORDERED: DEXTROSE 40% GEL 15 GM TUBE PO PRN ×2 (13:50)
[2019-03-09] MEDS: PANTOPRAZOLE SODIUM 40 MG VIAL IV SCH ×2 (14:16→22:19)
[2019-03-09] MEDS: FUROSEMIDE 20 MG TABLET PO SCH (14:23)
[2019-03-09] MEDS: METOPROLOL TARTRATE 25 MG TABLET PO SCH ×2 (14:24→22:19)
--- NOTE | 2019-03-09 14:24 | PDOC PROGRESS REPORT ---
Subjective Progress Note for:: 03/09/19 Reason For Visit: UPPER GI BLEED,ACUTE DELIRIUM,CKD Physical Exam Vital Signs: Temp Pulse Resp BP Pulse Ox 98.6 F 70 16 142/63 H 95 03/09/19 12:00 03/09/19 12:00 03/09/19 12:00 03/09/19 12:00 03/09/19 12:00 Intake & Output 03/08/19 03/09/19 03/10/19 06:59 06:59 06:59 Intake Total 2429 480 Output Total 1625 400 Balance 804 80 Weight 197 lb 12.074 oz 197 lb 12.074 oz General appearance: PRESENT: no acute distress, obese Head exam: PRESENT: atraumatic, normocephalic Eye exam: PRESENT: EOMI. ABSENT: scleral icterus Ear exam: PRESENT: normal external ear exam Mouth exam: PRESENT: dry mucosa, tongue midline Neck exam: ABSENT: tracheal deviation Respiratory exam: PRESENT: clear to auscultation jil, symmetrical Cardiovascular exam: PRESENT: +S1, +S2 GI/Abdominal exam: PRESENT: normal bowel sounds. ABSENT: tenderness Extremities exam: PRESENT: +1 edema - mild edema noted on her arms and legs Neurological exam: PRESENT: alert, awake, oriented to person, oriented to place, oriented to situation, CN II-XII grossly intact. ABSENT: oriented to time Skin exam: PRESENT: dry, warm Results Laboratory Results: 03/09/19 07:00 03/09/19 07:00 03/08/19 03/08/19 03/08/19 13:30 13:30 15:47 WBC Cancelled RBC Cancelled Hgb Cancelled Hct Cancelled MCV Cancelled MCH Cancelled MCHC Cancelled RDW Cancelled Plt Count Cancelled Seg Neutrophils % Cancelled Lymphocytes % Cancelled Monocytes % Cancelled Eosinophils % Cancelled Basophils % Cancelled Absolute Neutrophils Cancelled Absolute Lymphocytes Cancelled Absolute Monocytes Cancelled Absolute Eosinophils Cancelled Absolute Basophils Cancelled Sodium 138.9 Potassium 4.1 Chloride 105 Carbon Dioxide 20 L Anion Gap 14 BUN 71 H Creatinine 1.66 H Est GFR ( Amer) 38 L Est GFR (Non-Af Amer) 31 L Glucose 212 H Calcium 9.0 Phosphorus Magnesium Total Bilirubin 0.6 AST 29 ALT 26 Alkaline Phosphatase 71 Total Protein 5.3 L Albumin 2.8 L Triglycerides Cholesterol LDL Cholesterol Direct VLDL Cholesterol HDL Cholesterol TSH Urine Color Urine Appearance Urine pH Ur Specific [place] Urine Protein Urine Glucose (UA) Urine Ketones Urine Blood Urine Nitrite Ur Leukocyte Esterase Urine RBC (Auto) Blood Type B POSITIVE Antibody Screen NEGATIVE 03/08/19 03/08/19 03/09/19 15:50 18:16 07:00 WBC 10.9 H RBC 2.14 L Hgb 4.1 L* Hct 13.2 L* MCV 62 L MCH 19.1 L MCHC 31.0 L RDW 24.2 H Plt Count 203 Seg Neutrophils % Not Reportable Lymphocytes % Not Reportable Monocytes % Not Reportable Eosinophils % Not Reportable Basophils % Not Reportable Absolute Neutrophils Not Reportable Absolute Lymphocytes Not Reportable Absolute Monocytes Not Reportable Absolute Eosinophils Not Reportable Absolute Basophils Not Reportable Sodium Potassium Chloride Carbon Dioxide Anion Gap BUN Creatinine Est GFR ( Amer) Est GFR (Non-Af Amer) Glucose Calcium Phosphorus Magnesium Total Bilirubin AST ALT Alkaline Phosphatase Total Protein Albumin Triglycerides Cholesterol LDL Cholesterol Direct VLDL Cholesterol HDL Cholesterol TSH 0.48 Urine Color YELLOW Urine Appearance CLEAR Urine pH 5.0 Ur Specific [place] 1.012 Urine Protein NEGATIVE Urine Glucose (UA) NEGATIVE Urine Ketones NEGATIVE Urine Blood NEGATIVE Urine Nitrite NEGATIVE Ur Leukocyte Esterase NEGATIVE Urine RBC (Auto) 0 Blood Type Antibody Screen 03/09/19 03/09/19 07:00 07:00 WBC 12.8 H RBC 3.48 L Hgb 9.3 L D Hct 27.4 L MCV 79 L D MCH 26.7 L MCHC 33.8 RDW 25.8 H Plt Count 130 L Seg Neutrophils % 81.7 H Lymphocytes % 6.7 L Monocytes % 11.4 Eosinophils % 0.0 Basophils % 0.2 Absolute Neutrophils 10.5 H Absolute Lymphocytes 0.9 Absolute Monocytes 1.5 H Absolute Eosinophils 0.0 Absolute Basophils 0.0 Sodium 143.1 Potassium 3.6 Chloride 109 H Carbon Dioxide 27 Anion Gap 7 BUN 54 H Creatinine 1.43 H Est GFR ( Amer) 45 L Est GFR (Non-Af Amer) 37 L Glucose 124 H Calcium 8.9 Phosphorus 4.0 Magnesium 2.5 H Total Bilirubin 0.7 AST 35 ALT 30 Alkaline Phosphatase 64 Total Protein 5.4 L Albumin 3.1 L Triglycerides 100 Cholesterol 81.28 LDL Cholesterol Direct 41 VLDL Cholesterol 20.0 HDL Cholesterol 23 L TSH Urine Color Urine Appearance Urine pH Ur Specific [place] Urine Protein Urine Glucose (UA) Urine Ketones Urine Blood Urine Nitrite Ur Leukocyte Esterase Urine RBC (Auto) Blood Type Antibody Screen 03/08/19 03/08/19 13:30 13:30 Creatine Kinase 39 CK-MB (CK-2) 0.44 Troponin I < 0.012 Impressions: Chest X-Ray 03/08/19 00:00 IMPRESSION: No acute cardiopulmonary findings. Assessment and Plan - Diagnosis (1) Upper GI bleed Is this a current diagnosis for this admission?: Yes (2) Supratherapeutic INR Is this a current diagnosis for this admission?: Yes (3) Acute delirium Is this a current diagnosis for this admission?: Yes (4) History of coronary artery bypass graft x 3 Is this a current diagnosis for this admission?: Yes (5) History of carotid artery disease Is this a current diagnosis for this admission?: Yes (6) Essential hypertension Is this a current diagnosis for this admission?: Yes (7) Diabetes mellitus type 2 in obese Is this a current diagnosis for this admission?: Yes (8) Chronic anticoagulation Is this a current diagnosis for this admission?: Yes - Time Time Spent with patient: 35 or more minutes - Inpatient Certification Based on my medical assessment, after consideration of the patient's comorbidities, presenting symptoms, or acuity I expect that the services needed warrant INPATIENT care.: Yes I certify that my determination is in accordance with my understanding of Medicare's requirements for reasonable and necessary INPATIENT services [42 CFR 412.3e].: Yes Medical Necessity: Failure to Improve With Outpatient Therapy, Need Close Monitoring Due to Risk of Patient Decompensation, Need For Continuous Telemetry Monitoring, Risk of Complication if Not Cared For in Hospital - Plan Summary Plan Summary: Upper GI bleed-hemoglobin has improved to greater than 9 this morning-so far she has received one-time vitamin K p.o., 4 units of packed red cells and 2 units of FFP. Her INR also has improved and is currently less than 2. She continues to have melena with her BM. Continue to monitor CBC. We will continue to hold her Coumadin at this time. Her blood pressure is also improved after IV fluid bolus and transfusion of packed red cells. Yesterday due to her hypertension she was sent directly to the ICU instead of IMCU. Since she is stable I will downgrade her to IMCU at this time. I spoke with Dr. Kevin-discussed about her GI bleed and he is going to start her on a bowel prep tonight and he plans on doing an EGD and colonoscopy in the morning tomorrow. She did have a right central line placed-I appreciate surgery for their assistance. She did not require any pressors for hypotension. Continue with Protonix IV twice daily. Acute delirium-see plan above-seems to be doing much better this morning and much more alert and oriented. Likely able due to the hypotension and GI bleed. Coronary artery disease-status post bypass x3 per daughter-continue to hold her Coumadin due to her upper GI bleed. We will restart her metoprolol, statin and low-dose Lasix 20 mg. Supratherapeutic [id number] plan above for upper GI bleed Hypertension -she became hypotensive yesterday and needed volume resuscitation with IV normal saline and responded well. This morning her blood pressure is above 140 systolic and hence we will start back on her low-dose metoprolol 12.5 mg twice daily since she does have a history of coronary artery disease with bypass graft. Diabetes mellitus type 2-we will restart her Lantus but at half the dose at 8 units since she is only on clears and will be n.p.o. tonight for EGD and col onoscopy in the a.m. Continue with SSI.
[2019-03-09 15:04] LABS: HEMATOCRIT 27.6 % (36.0-47.0); HEMOGLOBIN 9.3 g/dL (12.0-15.5); MEAN CORPUSCULAR HEMOGLOBIN 26.6 pg (27.0-33.4); MEAN CORPUSCULAR HGB CONC 33.6 g/dL (32.0-36.0); MEAN CORPUSCULAR VOLUME 79 fl (80-97); PLATELET COUNT 136 10^3/uL (150-450); RED BLOOD COUNT 3.49 10^6/uL (3.72-5.28); RED CELL DISTRIBUTION WIDTH 25.3 % (11.5-14.0); WHITE BLOOD COUNT 10.7 10^3/uL (4.0-10.5)
[2019-03-09 15:13] LABS: INTERNATIONAL RATION (INR) 1.79
[2019-03-09] MEDS: INSULIN LISPRO 100 UNIT/ML 3 ML VIAL SUBCUT SCH ×2 (16:56→21:52)
--- NOTE | 2019-03-09 19:20 | EKG REPORT ---
SEVERITY:- ABNORMAL ECG - SINUS RHYTHM LVH : Confirmed by: Nery Garrison 09-Mar-2019 19:19:59
--- NOTE | 2019-03-09 19:20 | EKG REPORT ---
SEVERITY:- ABNORMAL ECG - SINUS RHYTHM BORDERLINE R WAVE PROGRESSION, ANTERIOR LEADS NONSPECIFIC T ABNORMALITIES, LATERAL LEADS : Confirmed by: Nery Garrison 09-Mar-2019 19:19:36
[2019-03-09] MEDS: ATORVASTATIN CALCIUM 80 MG TABLET PO SCH (22:19)
[2019-03-09] MEDS: INSULIN GLARGINE,HUM.REC.ANLOG 1,000 UNIT/10 ML VIAL SUBCUT SCH (22:20)
[2019-03-10 06:26] LABS: ABSOLUTE LYMPHOCYTES (AUTO) 0.7 10^3/uL (0.5-4.7); ABSOLUTE MONOCYTES (AUTO) 1.1 10^3/uL (0.1-1.4); ABSOLUTE NEUT (AUTO) 6.2 10^3/uL (1.7-8.2); BASOPHILS % (AUTO) 0.2 % (0-2); EOSINOPHILS % (AUTO) 0.6 % (0-6); HEMOGLOBIN 8.6 g/dL (12.0-15.5); MEAN CORPUSCULAR HEMOGLOBIN 26.3 pg (27.0-33.4); MEAN CORPUSCULAR HGB CONC 33.1 g/dL (32.0-36.0); MEAN CORPUSCULAR VOLUME 80 fl (80-97); MONOCYTES % (AUTO) 13.6 % (3-13); PLATELET COUNT 129 10^3/uL (150-450); RED BLOOD COUNT 3.28 10^6/uL (3.72-5.28); RED CELL DISTRIBUTION WIDTH 25.8 % (11.5-14.0); SEGMENTED NEUTROPHILS % (AUTO) 76.6 % (42-78); TOTAL CELLS COUNTED % (AUTO) 100 %; WHITE BLOOD COUNT 8.1 10^3/uL (4.0-10.5)
[2019-03-10 06:31] LABS: PROTHROMBIN TIME 18.3 SEC (11.4-15.4)
[2019-03-10 06:46] LABS: ANISOCYTOSIS 2+; HYPOCHROMASIA SLIGHT; POIKILOCYTOSIS 1+; POLYCHROMASIA SLIGHT
[2019-03-10 06:47] LABS: PLATELET COMMENT DECREASED; TARGET CELLS SLIGHT
[2019-03-10 07:08] LABS: CALCIUM 8.4 mg/dL (8.4-10.2); CHLORIDE 113 mmol/L (98-107); GLUCOSE 107 mg/dL (75-110); POTASSIUM 3.1 mmol/L (3.6-5.0)
[2019-03-10 07:13] LABS: CARBON DIOXIDE 29 mmol/L (22-30); SODIUM 145.1 mmol/L (137-145)
[2019-03-10 07:18] LABS: ANION GAP 3 (5-19)
[2019-03-10 07:19] LABS: BLOOD UREA NITROGEN 29 mg/dL (7-20)
--- NOTE | 2019-03-10 08:26 | PDOC PROGRESS REPORT ---
Subjective Progress Note for:: 03/10/19 Subjective:: This is a 63-year-old female with a supra therapeutic INR and melanotic stools. She also has severe anemia, presenting with a hemoglobin of 4. Today, she reports feeling weak and tired. She also reports that she is depressed. She only drank half of her bowel prep last night. She denies chest pain, shortness of breath, abdominal pain, nausea, vomiting, hematemesis, hematochezia, blurry vision, difficulty hearing. Reason For Visit: UPPER GI BLEED,ACUTE DELIRIUM,CKD Physical Exam Vital Signs: Temp Pulse Resp BP Pulse Ox 98.2 F 66 15 143/68 H 97 03/09/19 16:00 03/09/19 22:00 03/10/19 06:00 03/10/19 04:02 03/10/19 06:00 Intake & Output 03/09/19 03/10/19 03/11/19 06:59 06:59 06:59 Intake Total 2429 1788 1000 Output Total 1625 1827 Balance 804 -39 1000 Weight 89.7 kg 90.9 kg General appearance: PRESENT: no acute distress, cooperative, disheveled Head exam: PRESENT: atraumatic, normocephalic Eye exam: PRESENT: EOMI, PERRLA. ABSENT: scleral icterus Mouth exam: PRESENT: moist, neck supple Neck exam: ABSENT: meningismus, tenderness, thyromegaly, tracheal deviation Respiratory exam: PRESENT: clear to auscultation jil, unlabored. ABSENT: chest wall tenderness, tachypnea, wheezes Cardiovascular exam: PRESENT: RRR Pulses: PRESENT: normal radial pulses GI/Abdominal exam: PRESENT: soft. ABSENT: distended, firm, guarding, tenderness Rectal exam: PRESENT: deferred Extremities exam: ABSENT: clubbing Musculoskeletal exam: ABSENT: deformity Neurological exam: PRESENT: alert, awake, oriented to person, oriented to place, oriented to time, oriented to situation Psychiatric exam: PRESENT: anxious, depressed, other - Reports that she wants to "go home to see her ". She reports that her is . Skin exam: ABSENT: cyanosis, erythema, jaundice Results Laboratory Results: 03/10/19 06:05 03/10/19 06:05 03/09/19 03/09/19 03/10/19 07:00 14:30 06:05 WBC 10.7 H RBC 3.49 L Hgb 9.3 L Hct 27.6 L MCV 79 L MCH 26.6 L MCHC 33.6 RDW 25.3 H Plt Count 136 L Seg Neutrophils % Lymphocytes % Monocytes % Eosinophils % Basophils % Absolute Neutrophils Absolute Lymphocytes Absolute Monocytes Absolute Eosinophils Absolute Basophils Sodium 145.1 H Potassium 3.1 L Chloride 113 H Carbon Dioxide 29 Anion Gap 3 L BUN 29 H D Creatinine 1.05 Est GFR ( Amer) > 60 Est GFR (Non-Af Amer) 53 L Glucose 107 Calcium 8.4 TSH 0.48 03/10/19 06:05 WBC 8.1 RBC 3.28 L Hgb 8.6 L Hct 26.0 L MCV 80 MCH 26.3 L MCHC 33.1 RDW 25.8 H Plt Count 129 L Seg Neutrophils % 76.6 Lymphocytes % 9.0 L Monocytes % 13.6 H Eosinophils % 0.6 Basophils % 0.2 Absolute Neutrophils 6.2 Absolute Lymphocytes 0.7 Absolute Monocytes 1.1 Absolute Eosinophils 0.0 Absolute Basophils 0.0 Sodium Potassium Chloride Carbon Dioxide Anion Gap BUN Creatinine Est GFR ( Amer) Est GFR (Non-Af Amer) Glucose Calcium TSH 03/08/19 03/08/19 13:30 13:30 Creatine Kinase 39 CK-MB (CK-2) 0.44 Troponin I < 0.012 Impressions: Chest X-Ray 03/08/19 00:00 IMPRESSION: No acute cardiopulmonary findings. Assessment & Plan - Diagnosis (1) Melena Is this a current diagnosis for this admission?: Yes (2) Anemia Qualifiers: Anemia type: unspecified type Qualified Code(s): D64.9 - Anemia, unspecified Is this a current diagnosis for this admission?: Yes (3) Supratherapeutic INR Is this a current diagnosis for this admission?: Yes - Plan Summary Plan Summary: This is a 63-year-old female with melanotic stool, supratherapeutic INR, and se kassi anemia. The patient refused to drink all of her bowel prep. She "did not like it". Plan for EGD today. After the EGD is completed, I will reevaluate the need for colonoscopy. Colonoscopy is preferred, as it will complete her work-up for melena. However if the patient refuses to drink her bowel prep, colonoscopy will be impossible. The patient made several disturbing comments this morning. She appears incredibly depressed and tearful. She reports that she misses her and "wants to go home to see him". Upon questioning as to why her cannot come and see her, she explained that her is . Psychiatry consult may be prudent in her case.
[2019-03-10] MEDS ORDERED: PROPOFOL INJ 200 MG/20 ML VIAL IV ONE (08:29)
[2019-03-10] MEDS: INSULIN LISPRO 100 UNIT/ML 3 ML VIAL SUBCUT SCH ×3 (08:50→15:55)
[2019-03-10] MEDS ORDERED: POTASSI CL 20 MEQ/50 ML RIDER 20 MEQ/50 ML RTUPB IV ONE (09:20)
--- NOTE | 2019-03-10 09:47 | Operative Report ---
Nonrecallable Operative Report DATE OF SURGERY: 03/10/19 PREOPERATIVE DIAGNOSIS: GI bleeding, melena, anemia POSTOPERATIVE DIAGNOSIS: 1. No evidence of active bleeding in the stomach. No deep ulcerations, no visible vessels, no old blood in the stomach. 2. Antral gastritis with shallow gastric ulcerations. 3. Small hiatal hernia. 4. Reflux esophagitis. OPERATION: EGD with biopsy. SURGEON: VANI MAYORGA ANESTHESIA: LMAC TISSUE REMOVED OR ALTERED: 1. Antral biopsy. 2. Distal esophagus biopsy. COMPLICATIONS: None apparent ESTIMATED BLOOD LOSS: Minimal PROCEDURE: Procedure in detail: After informed consent was obtained, the patient was brought to the operating room and laid in the left lateral decubitus position. The endoscope was passed down the oropharynx, down the esophagus, and into the stomach. The stomach was insufflated with air. There is mild gastritis throughout the stomach. There is no old blood within the stomach. There was active gastritis in the antrum of the stomach with shallow gastric ulcerations. There were no deep ulcerations or visible vessels. The scope was pushed through the pylorus, and into the duodenum. The duodenum appeared normal (both first and second portions). The scope was pulled back into the antrum where biopsy was taken at the most affected portion. The scope was retroflexed in the gastric body. Again no active bleeding, old blood, or visible vessels were identified. There was a small hiatal hernia present. The scope was pulled up into the hiatal hernia were mild reflux esophagitis was identified. Biopsy was taken at the distal esophagus. The scope was then withdrawn up the remainder of the esophagus. The remainder the esophagus was smooth in contour without masses, lesions, or other abnormalities. The scope was withdrawn out of the oropharynx, and the procedure was concluded. All sponge, instrument, and needle counts were correct. Condition: Fair. Recommendation: No active bleeding or bleeding source identified on EGD. For completeness sake, the patient should undergo colonoscopy. This is all dependent upon whether or not she will finish her bowel prep.
[2019-03-10] MEDS: 1/2 NORMAL SALINE 1,000 ML IV PRN (10:15)
[2019-03-10] MEDS: POTASSIUM CHLORIDE 20 MEQ/50 ML RTU IV SCH ×2 (10:51→10:52)
[2019-03-10] MEDS: PANTOPRAZOLE SODIUM 40 MG VIAL IV SCH (10:51)
[2019-03-10] MEDS: FUROSEMIDE 20 MG TABLET PO SCH (10:56)
[2019-03-10] MEDS: METOPROLOL TARTRATE 25 MG TABLET PO SCH ×2 (10:56→23:58)
--- NOTE | 2019-03-10 14:08 | PDOC PROGRESS REPORT ---
Subjective Progress Note for:: 03/10/19 Subjective:: Saw patient at bedside this morning. Nurses also in the room. She is very tearful and wants to go home. I discussed about her medical condition and the risk of dying if she left at this time. States she is tired and depressed states that her daughter does not love her. I explained to her that this morning she is getting get an EGD to check for GI bleeding. Unf ortunately overnight she was unable to tolerate the colon prep. Otherwise she really does not have any other concerns. Denies any chest pain, shortness of breath, nausea vomiting or dizziness. She says her abdomen is a little bit sore but does not really hurt. Reason For Visit: UPPER GI BLEED,ACUTE DELIRIUM,CKD Physical Exam Vital Signs: Temp Pulse Resp BP Pulse Ox 98.1 F 58 L 16 158/63 H 100 03/10/19 12:00 03/10/19 12:00 03/10/19 12:00 03/10/19 12:00 03/10/19 12:00 Intake & Output 03/09/19 03/10/19 03/11/19 06:59 06:59 06:59 Intake Total 2429 1788 1300 Output Total 1625 1827 425 Balance 804 -39 875 Weight 197 lb 12.074 oz 200 lb 6.403 oz Results Laboratory Results: 03/10/19 06:05 03/10/19 06:05 03/09/19 03/10/19 03/10/19 14:30 06:05 06:05 WBC 10.7 H 8.1 RBC 3.49 L 3.28 L Hgb 9.3 L 8.6 L Hct 27.6 L 26.0 L MCV 79 L 80 MCH 26.6 L 26.3 L MCHC 33.6 33.1 RDW 25.3 H 25.8 H Plt Count 136 L 129 L Seg Neutrophils % 76.6 Lymphocytes % 9.0 L Monocytes % 13.6 H Eosinophils % 0.6 Basophils % 0.2 Absolute Neutrophils 6.2 Absolute Lymphocytes 0.7 Absolute Monocytes 1.1 Absolute Eosinophils 0.0 Absolute Basophils 0.0 Sodium 145.1 H Potassium 3.1 L Chloride 113 H Carbon Dioxide 29 Anion Gap 3 L BUN 29 H D Creatinine 1.05 Est GFR ( Amer) > 60 Est GFR (Non-Af Amer) 53 L Glucose 107 Calcium 8.4 03/08/19 03/08/19 13:30 13:30 Creatine Kinase 39 CK-MB (CK-2) 0.44 Troponin I < 0.012 Impressions: Chest X-Ray 03/08/19 00:00 IMPRESSION: No acute cardiopulmonary findings. Assessment and Plan - Diagnosis (1) Upper GI bleed Is this a current diagnosis for this admission?: Yes (2) Supratherapeutic INR Is this a current diagnosis for this admission?: Yes (3) Acute delirium Is this a current diagnosis for this admission?: Yes (4) History of coronary artery bypass graft x 3 Is this a current diagnosis for this admission?: Yes (5) History of carotid artery disease Is this a current diagnosis for this admission?: Yes (6) Essential hypertension Is this a current diagnosis for this admission?: Yes (7) Diabetes mellitus type 2 in obese Is this a current diagnosis for this admission?: Yes (8) Chronic anticoagulation Is this a current diagnosis for this admission?: Yes - Time Time Spent with patient: 35 or more minutes - Plan Summary Plan Summary: Upper GI bleed-status post 4 units of packed red cells. Hemoglobin slightly lower than yesterday but still holding stable. No active signs of bleeding although her stools have been dark in color. Today she is planned for an EGD this morning. We were planning on doing a colonoscopy but she was not able to tolerate the colon prep. We may aim to try to do it again tomorrow if she is able to drink the colon prep tonight. Continue with Protonix IV twice a day. Acute delirium- see plan above-seems to be doing much better, alert and oriented. Likely it was due to the hypotension and GI bleed. Coronary artery disease-status post bypass x3 per daughter-continue to hold her Coumadin due to her upper GI bleed. We will restart her metoprolol, statin and low-dose Lasix 20 mg. Supratherapeutic LUC-riukevtt-nez plan above for upper GI bleed. Continue to hold Coumadin at this time. Hypertension -initially she had an episode of hypotension which has resolved. Now she seems to be a little bit more on the higher side. Continue with metoprolol. And hydralazine IV as needed. Diabetes mellitus type 2-continue with Lantus at 8 units which is half the dose that she takes at home. Continue with sliding scale insulin. Hypokalemia-replete as needed-goal is to keep her greater than 4 given her cardiac disease.
[2019-03-10 14:25] LABS: ABSOLUTE BASOPHILS # (AUTO) 0.1 10^3/uL (0.0-0.2); ABSOLUTE LYMPHOCYTES (AUTO) 0.6 10^3/uL (0.5-4.7); ABSOLUTE MONOCYTES (AUTO) 1.1 10^3/uL (0.1-1.4); ABSOLUTE NEUT (AUTO) 6.1 10^3/uL (1.7-8.2); BASOPHILS % (AUTO) 0.8 % (0-2); EOSINOPHILS % (AUTO) 0.5 % (0-6); HEMATOCRIT 25.3 % (36.0-47.0); HEMOGLOBIN 8.4 g/dL (12.0-15.5); LYMPHOCYTES % (AUTO) 7.2 % (13-45); MEAN CORPUSCULAR HEMOGLOBIN 26.2 pg (27.0-33.4); MEAN CORPUSCULAR HGB CONC 33.4 g/dL (32.0-36.0); MEAN CORPUSCULAR VOLUME 79 fl (80-97); MONOCYTES % (AUTO) 13.8 % (3-13); PLATELET COUNT 127 10^3/uL (150-450); RED BLOOD COUNT 3.21 10^6/uL (3.72-5.28); RED CELL DISTRIBUTION WIDTH 25.8 % (11.5-14.0); SEGMENTED NEUTROPHILS % (AUTO) 77.7 % (42-78); TOTAL CELLS COUNTED % (AUTO) 100 %; WHITE BLOOD COUNT 7.8 10^3/uL (4.0-10.5)
[2019-03-10 14:44] LABS: BLOOD UREA NITROGEN 21 mg/dL (7-20); CALCIUM 8.2 mg/dL (8.4-10.2); CARBON DIOXIDE 29 mmol/L (22-30); CHLORIDE 110 mmol/L (98-107); GLUCOSE 209 mg/dL (75-110); POTASSIUM 3.6 mmol/L (3.6-5.0); SODIUM 141.8 mmol/L (137-145)
[2019-03-10 14:48] LABS: ANION GAP 3 (5-19)
[2019-03-10 14:56] LABS: HYPOCHROMASIA SLIGHT
[2019-03-10 14:57] LABS: ANISOCYTOSIS 3+; BURR CELLS SLIGHT; OVALOCYTES 1+; PLATELET COMMENT DECREASED; POIKILOCYTOSIS 1+; POLYCHROMASIA 1+; SCHISTOCYTES SLIGHT; TARGET CELLS SLIGHT; TEAR DROP CELLS 1+
--- NOTE | 2019-03-10 16:44 | PSYCHOLOGICAL NOTE ---
Psych Note - Psych Note Date seen by psych provider: 03/10/19 Psych Note: Presenting Problem: Depression, Grief- Labor Day of Cancer, they're 50th anniversary is 03/26/19. She mentioned wanting to get back home to [place], see her cat Gaga and get back to doing the small routine things she enjoys (like going to the store to get a coke once a month, more frequent lemon Ice Tea and cheddar cheese popcorn) and to people that know her and ask about her. She cried at appropriate times when talking about her . She stated at home her family helps with preparing medication binders and taking her to doctor's appointments. She is visiting family in [place]. She talked about medical procedures and being in the hospital currently. Diagnosis: Uncomplicated Bereavement Medication recommendations made by the psychiatric medical provider, Dr. Zenaida blake MD., includes: Continue Celexa 10MG daily for depression/anxiety/ruminating thoughts Add Buspar 5MG twice a day for anxiety/calming effect/depression/sleep Impression/Plan: Patient is cleared from acute psychiatric services. She is dealing with grief, i.e. the loss of her and their 50th anniversary is approaching. Consulted with Dr. Craig regarding the management and care of patient. Attending Hospitalist made aware of recommendations.
--- NOTE | 2019-03-10 16:58 | Progress Note ---
Provider Note Provider Note: Spoke with the behavioral unit specialist about patient's depression. They recommend starting BuSpar 5 mg twice a day and continue with Celexa. Appreciate assistance. We will add BuSpar starting and Celexa starting Monday since she will be n.p.o. after midnight for tomorrow's colonoscopy.
[2019-03-10] MEDS ORDERED: PEG 3350/NA SULF,BICARB,CL/KCL 4000 ML ONE (18:12)
[2019-03-10] MEDS ORDERED: PEG 3350/NA SULF,BICARB,CL/KCL 4000 ML PO ONE (18:15)
[2019-03-10] MEDS: BUSPIRONE HCL 10 MG TABLET PO SCH (23:58)
[2019-03-10] MEDS: INSULIN GLARGINE,HUM.REC.ANLOG 1,000 UNIT/10 ML VIAL SUBCUT SCH (23:59)
[2019-03-11] MEDS: ATORVASTATIN CALCIUM 80 MG TABLET PO SCH ×2 (00:01→21:54)
[2019-03-11] MEDS: PANTOPRAZOLE SODIUM 40 MG VIAL IV SCH ×2 (00:05→10:04)
[2019-03-11] MEDS: 1/2 NORMAL SALINE 1,000 ML IV PRN (04:53)
[2019-03-11 05:17] LABS: ABSOLUTE EOSINOPHILS # (AUTO) 0.1 10^3/uL (0.0-0.6); ABSOLUTE LYMPHOCYTES (AUTO) 0.7 10^3/uL (0.5-4.7); ABSOLUTE MONOCYTES (AUTO) 0.9 10^3/uL (0.1-1.4); BASOPHILS % (AUTO) 0.3 % (0-2); EOSINOPHILS % (AUTO) 1.8 % (0-6); HEMOGLOBIN 8.2 g/dL (12.0-15.5); LYMPHOCYTES % (AUTO) 10.8 % (13-45); MEAN CORPUSCULAR HEMOGLOBIN 26.1 pg (27.0-33.4); MEAN CORPUSCULAR HGB CONC 32.9 g/dL (32.0-36.0); MEAN CORPUSCULAR VOLUME 79 fl (80-97); MONOCYTES % (AUTO) 13.7 % (3-13); PLATELET COUNT 121 10^3/uL (150-450); RED BLOOD COUNT 3.15 10^6/uL (3.72-5.28); SEGMENTED NEUTROPHILS % (AUTO) 73.4 % (42-78); TOTAL CELLS COUNTED % (AUTO) 100 %; WHITE BLOOD COUNT 6.8 10^3/uL (4.0-10.5)
[2019-03-11 05:27] LABS: ANISOCYTOSIS 2+; HYPOCHROMASIA 2+; PLATELET COMMENT DECREASED; POIKILOCYTOSIS 1+; POLYCHROMASIA 1+
[2019-03-11 05:28] LABS: OVALOCYTES SLIGHT; SCHISTOCYTES SLIGHT
[2019-03-11 05:29] LABS: BLOOD UREA NITROGEN 15 mg/dL (7-20); CALCIUM 8.1 mg/dL (8.4-10.2); GLUCOSE 96 mg/dL (75-110); POTASSIUM 3.3 mmol/L (3.6-5.0)
[2019-03-11 05:34] LABS: CARBON DIOXIDE 29 mmol/L (22-30); CHLORIDE 108 mmol/L (98-107); SODIUM 138.6 mmol/L (137-145)
[2019-03-11 05:41] LABS: ANION GAP 2 (5-19)
[2019-03-11] MEDS: INSULIN LISPRO 100 UNIT/ML 3 ML VIAL SUBCUT SCH ×5 (09:02→21:55)
--- NOTE | 2019-03-11 09:18 | PDOC PROGRESS REPORT ---
Subjective Progress Note for:: 03/11/19 Subjective:: Patient sleeping on the third floor. Took 250 cc of bowel prep. Has a variety of nonspecific complaints. No clinical evidence of GI bleeding. Reason For Visit: UPPER GI BLEED,ACUTE DELIRIUM,CKD Physical Exam Vital Signs: Temp Pulse Resp BP Pulse Ox 98.1 F 61 22 H 143/59 H 92 03/11/19 03:24 03/11/19 07:00 03/11/19 03:24 03/11/19 03:24 03/11/19 03:24 Intake & Output 03/10/19 03/11/19 03/12/19 06:59 06:59 06:59 Intake Total 1788 2874 Output Total 1827 900 Balance -39 1974 Weight 90.9 kg 94.8 kg General appearance: PRESENT: no acute distress, other - Groggy but arouses follows simple commands GI/Abdominal exam: PRESENT: other - Soft, nontender no peritoneal signs no rigi dity Results Laboratory Results: 03/11/19 05:00 03/11/19 05:00 03/10/19 03/10/19 03/11/19 14:10 14:10 05:00 WBC 7.8 6.8 RBC 3.21 L 3.15 L Hgb 8.4 L 8.2 L Hct 25.3 L 25.0 L MCV 79 L 79 L MCH 26.2 L 26.1 L MCHC 33.4 32.9 RDW 25.8 H 26.0 H Plt Count 127 L 121 L Seg Neutrophils % 77.7 73.4 Lymphocytes % 7.2 L 10.8 L Monocytes % 13.8 H 13.7 H Eosinophils % 0.5 1.8 Basophils % 0.8 0.3 Absolute Neutrophils 6.1 5.0 Absolute Lymphocytes 0.6 0.7 Absolute Monocytes 1.1 0.9 Absolute Eosinophils 0.0 0.1 Absolute Basophils 0.1 0.0 Sodium 141.8 Potassium 3.6 Chloride 110 H Carbon Dioxide 29 Anion Gap 3 L BUN 21 H Creatinine 0.95 Est GFR ( Amer) > 60 Est GFR (Non-Af Amer) 59 L Glucose 209 H Calcium 8.2 L Magnesium 03/11/19 05:00 WBC RBC Hgb Hct MCV MCH MCHC RDW Plt Count Seg Neutrophils % Lymphocytes % Monocytes % Eosinophils % Basophils % Absolute Neutrophils Absolute Lymphocytes Absolute Monocytes Absolute Eosinophils Absolute Basophils Sodium 138.6 Potassium 3.3 L Chloride 108 H Carbon Dioxide 29 Anion Gap 2 L BUN 15 Creatinine 0.96 Est GFR ( Amer) > 60 Est GFR (Non-Af Amer) 58 L Glucose 96 Calcium 8.1 L Magnesium 1.9 03/08/19 03/08/19 13:30 13:30 Creatine Kinase 39 CK-MB (CK-2) 0.44 Troponin I < 0.012 Impressions: Chest X-Ray 03/08/19 00:00 IMPRESSION: No acute cardiopulmonary findings. Assessment & Plan - Diagnosis (1) Gastrointestinal bleed Qualifiers: GI bleed type/associated pathology: melena Qualified Code(s): K92.1 - Melena Is this a current diagnosis for this admission?: Yes Plan: Impression: GI bleed of unknown etiology; status post EGD with findings of shallow prepyloric ulcers, likely not the source of acute GI bleed. Recommendations: 1. We will continue to work with patient on bowel prep 2. Plan on colonoscopy, possible polypectomy, possible biopsy later today. (2) Obesity Is this a current diagnosis for this admission?: Yes (3) Acute delirium Is this a current diagnosis for this admission?: Yes (4) Chronic anticoagulation Is this a current diagnosis for this admission?: Yes (5) Diabetes mellitus type 2 in obese Is this a current diagnosis for this admission?: Yes (6) Supratherapeutic INR Is this a current diagnosis for this admission?: Yes
[2019-03-11] MEDS: BUSPIRONE HCL 10 MG TABLET PO SCH ×2 (10:03→21:54)
[2019-03-11] MEDS: CITALOPRAM HYDROBROMIDE 20 MG TABLET PO SCH (10:03)
[2019-03-11] MEDS: METOPROLOL TARTRATE 25 MG TABLET PO SCH ×2 (10:05→21:54)
[2019-03-11] MEDS: FUROSEMIDE 20 MG TABLET PO SCH (10:05)
--- NOTE | 2019-03-11 10:59 | PDOC PROGRESS REPORT ---
Subjective Progress Note for:: 03/11/19 Subjective:: 63 year old female Presents emergency department via ground rescue requested by her family because of generalized weakness. Patient lives in [place] and weakness, generalized fatigue, and decreased mobility. She was seen last week in the emergency department where she was found to have a hemoglobin of 10.1. He was discharged home on supportive care. Her last colonoscopy was approximately 5 years ago but there are no records to verify this.. She has been cared for by her son. Apparently she has had worsening weakness, diminished p.o. intake, dark stools, decreased urine output. She is visiting [facility]. Over the last month she has had progressive weakness, decreased p.o. intake, decreased mobility, dark stools, decreased urine output. In the emergency department she was found to have a second blood pressure, and a hemoglobin of 4 0.1, and a profound coagulopathy. Patient is on Coumadin, dose unknown, for diffuse athero-sclerotic disease. She is being admitted to the hospital service for further resuscitation, blood transfusion, and eventual endoscopy. She is being transferred to the intensive care unit because of sepsis. [id number]-old female visiting from [place] admitted with a lower GI bleed. He had she had a EGD done negative for bleeding source. She is getting colonic prep for possible colonoscopy today and biopsy. Hemoglobin is 8.2 stable. During the hospital stay she received 4 units of PRBC. Patient is on Coumadin at home which was on hold. Reason For Visit: UPPER GI BLEED,ACUTE DELIRIUM,CKD Physical Exam Vital Signs: Temp Pulse Resp BP Pulse Ox 98.1 F 61 22 H 143/59 H 92 03/11/19 03:24 03/11/19 07:00 03/11/19 03:24 03/11/19 03:24 03/11/19 03:24 Intake & Output 03/10/19 03/11/19 03/12/19 06:59 06:59 06:59 Intake Total 1785 4382 Output Total 6442 420 Balance -39 1974 Weight 90.9 kg 94.8 kg General appearance: PRESENT: no acute distress, obese Head exam: PRESENT: atraumatic Eye exam: PRESENT: PERRLA Mouth exam: PRESENT: moist, tongue midline Teeth exam: PRESENT: poor dentation Neck exam: ABSENT: carotid bruit, JVD, lymphadenopathy, thyromegaly Respiratory exam: PRESENT: decreased breath sounds Cardiovascular exam: PRESENT: RRR. ABSENT: diastolic murmur, rubs, systolic murmur GI/Abdominal exam: PRESENT: normal bowel sounds, soft. ABSENT: distended, guarding, mass, organolmegaly, rebound, tenderness Rectal exam: PRESENT: deferred Extremities exam: PRESENT: full ROM. ABSENT: calf tenderness, clubbing, pedal edema Neurological exam: PRESENT: alert, awake, oriented to person, oriented to place, oriented to time, oriented to situation, CN II-XII grossly intact. ABSENT: motor sensory deficit Psychiatric exam: PRESENT: appropriate affect, normal mood. ABSENT: homicidal ideation, suicidal ideation Results Laboratory Results: 03/11/19 05:00 03/11/19 05:00 03/10/19 03/10/19 03/11/19 14:10 14:10 05:00 WBC 7.8 6.8 RBC 3.21 L 3.15 L Hgb 8.4 L 8.2 L Hct 25.3 L 25.0 L MCV 79 L 79 L MCH 26.2 L 26.1 L MCHC 33.4 32.9 RDW 25.8 H 26.0 H Plt Count 127 L 121 L Seg Neutrophils % 77.7 73.4 Lymphocytes % 7.2 L 10.8 L Monocytes % 13.8 H 13.7 H Eosinophils % 0.5 1.8 Basophils % 0.8 0.3 Absolute Neutrophils 6.1 5.0 Absolute Lymphocytes 0.6 0.7 Absolute Monocytes 1.1 0.9 Absolute Eosinophils 0.0 0.1 Absolute Basophils 0.1 0.0 Sodium 141.8 Potassium 3.6 Chloride 110 H Carbon Dioxide 29 Anion Gap 3 L BUN 21 H Creatinine 0.95 Est GFR ( Amer) > 60 Est GFR (Non-Af Amer) 59 L Glucose 209 H Calcium 8.2 L Magnesium 03/11/19 05:00 WBC RBC Hgb Hct MCV MCH MCHC RDW Plt Count Seg Neutrophils % Lymphocytes % Monocytes % Eosinophils % Basophils % Absolute Neutrophils Absolute Lymphocytes Absolute Monocytes Absolute Eosinophils Absolute Basophils Sodium 138.6 Potassium 3.3 L Chloride 108 H Carbon Dioxide 29 Anion Gap 2 L BUN 15 Creatinine 0.96 Est GFR ( Amer) > 60 Est GFR (Non-Af Amer) 58 L Glucose 96 Calcium 8.1 L Magnesium 1.9 07/05/19 07/05/19 13:30 13:30 Creatine Kinase 39 CK-MB (CK-2) 0.44 Troponin I < 0.012 Impressions: Chest X-Ray 03/08/19 00:00 IMPRESSION: No acute cardiopulmonary findings. Assessment and Plan - Diagnosis (1) Gastrointestinal bleed Qualifiers: GI bleed type/associated pathology: melena Qualified Code(s): K92.1 - Melena Is this a current diagnosis for this admission?: Yes Plan: 03/11/2019-this 63-year-old female admitted with GI bleed EGD was done which was negative for bleeding source. She is getting colonic prep for colonoscopy and possible biopsy. She is on Coumadin at home INR was supratherapeutic at the time of admission Coumadin on hold now. Patient received 4 units of blood transfusion during the hospital stay hemoglobin is stable around 8.2. (2) Acute delirium Is this a current diagnosis for this admission?: Yes Plan: -patient was admitted with acute delirium which was resolved. Acute delirium may be secondary to significant blood loss. (3) History of carotid artery disease Is this a current diagnosis for this admission?: Yes Plan: status post bypass x3 per daughter-continue to hold her Coumadin due to her upper GI bleed. We will restart her metoprolol, statin and low-dose Lasix 20 mg. 03/11/2019-patient has history of coronary artery disease status post bypass. No complaints of chest pain. Presently on metoprolol, statin and low-dose of Lasix. Blood pressure today is 143/60 stable. (4) Essential hypertension Is this a current diagnosis for this admission?: No Plan: 03/11/2019-patient has history of hypertension blood pressure is 1 12/06/1961. Stable. On metoprolol 12.5 mg p.o. twice daily and hydralazine IV as needed. Plan is to continue the present management. (5) Diabetes mellitus type 2 in obese Is this a current diagnosis for this admission?: No Plan: continue with Lantus at 8 units which is half the dose that she takes at home. Continue with sliding scale insulin. 03/11/2019-patient has history of type 2 diabetes mellitus. On Lantus 8 units and insulin sliding scale. Hemoglobin A1c is 5.4. (6) Supratherapeutic INR Is this a current diagnosis for this admission?: Yes Plan: 03/11/2019-patient was admitted with supratherapeutic INR Coumadin is on hold latest INR is 1.5. Patient is going for colonoscopy for possible lower GI bleed. (7) Hypokalemia Is this a current diagnosis for this admission?: Yes Plan: 03/11/2019-patient serum potassium is 3.3 she is going to receive potassium supplementation on daily basis. Hypokalemia may be secondary to diuretics. (8) Obesity (BMI 30-39.9) Is this a current diagnosis for this admission?: No Plan: -patient's BMI is more than 38 diet exercise weight loss lifestyle modifications are discussed with the patient. - Time Time Spent with patient: 25-34 minutes Medications reviewed and adjusted accordingly: Yes Anticipated discharge: Home
[2019-03-11 14:37] LABS: PATH REVIEW PATHOLOGIST REVIEWED
[2019-03-11] MEDS: INSULIN GLARGINE,HUM.REC.ANLOG 1,000 UNIT/10 ML VIAL SUBCUT SCH (21:55)
[2019-03-12 06:31] LABS: ABSOLUTE EOSINOPHILS # (AUTO) 0.1 10^3/uL (0.0-0.6); ABSOLUTE LYMPHOCYTES (AUTO) 0.6 10^3/uL (0.5-4.7); ABSOLUTE MONOCYTES (AUTO) 0.7 10^3/uL (0.1-1.4); ABSOLUTE NEUT (AUTO) 3.6 10^3/uL (1.7-8.2); BASOPHILS % (AUTO) 0.5 % (0-2); EOSINOPHILS % (AUTO) 2.9 % (0-6); HEMATOCRIT 24.9 % (36.0-47.0); HEMOGLOBIN 8.4 g/dL (12.0-15.5); LYMPHOCYTES % (AUTO) 11.4 % (13-45); MEAN CORPUSCULAR HEMOGLOBIN 26.1 pg (27.0-33.4); MEAN CORPUSCULAR HGB CONC 33.5 g/dL (32.0-36.0); MEAN CORPUSCULAR VOLUME 78 fl (80-97); MONOCYTES % (AUTO) 13.8 % (3-13); PLATELET COUNT 129 10^3/uL (150-450); RED CELL DISTRIBUTION WIDTH 26.2 % (11.5-14.0); SEGMENTED NEUTROPHILS % (AUTO) 71.4 % (42-78); TOTAL CELLS COUNTED % (AUTO) 100 %
[2019-03-12 06:38] LABS: INTERNATIONAL RATION (INR) 1.13; PROTHROMBIN TIME 14.6 SEC (11.4-15.4)
[2019-03-12 06:55] LABS: ALANINE AMINOTRANSFERASE 36 U/L (9-52); ALBUMIN 2.4 g/dL (3.5-5.0); ALKALINE PHOSPHATASE 77 U/L (38-126); ASPARTATE AMINO TRANSFERASE 30 U/L (14-36); BILIRUBIN,DIRECT 0.2 mg/dL (0.0-0.4); BILIRUBIN,TOTAL 1.1 mg/dL (0.2-1.3); BLOOD UREA NITROGEN 9 mg/dL (7-20); CALCIUM 8.3 mg/dL (8.4-10.2); GLUCOSE 89 mg/dL (75-110); POTASSIUM 3.3 mmol/L (3.6-5.0); TOTAL PROTEIN 4.6 g/dL (6.3-8.2)
[2019-03-12 06:56] LABS: ANISOCYTOSIS 3+; HYPOCHROMASIA 2+; POIKILOCYTOSIS 1+
[2019-03-12 06:58] LABS: PLATELET COMMENT DECREASED
[2019-03-12 07:00] LABS: CARBON DIOXIDE 32 mmol/L (22-30); CHLORIDE 107 mmol/L (98-107); SODIUM 137.8 mmol/L (137-145)
[2019-03-12 07:04] LABS: ANION GAP -1 (5-19)
[2019-03-12] MEDS: INSULIN LISPRO 100 UNIT/ML 3 ML VIAL SUBCUT SCH ×4 (09:04→21:59)
--- NOTE | 2019-03-12 09:53 | PDOC PROGRESS REPORT ---
Subjective Progress Note for:: 03/12/19 Subjective:: Tolerated bowel prep although she was not able to complete it. But her bowel movements are liquid and mostly clear. No evidence of active bleeding. Reason For Visit: UPPER GI BLEED,ACUTE DELIRIUM,CKD Physical Exam Vital Signs: Temp Pulse Resp BP Pulse Ox 97.8 F 97 16 146/73 H 95 03/12/19 09:01 03/12/19 09:01 03/12/19 09:01 03/12/19 09:01 03/12/19 09:01 Intake & Output 03/11/19 03/12/19 03/13/19 06:59 06:59 06:59 Intake Total 2874 869 Output Total 900 1125 Balance 1974 -256 Weight 94.8 kg 92.1 kg General appearance: PRESENT: no acute distress, cooperative Respiratory exam: PRESENT: clear to auscultation jil Cardiovascular exam: PRESENT: RRR GI/Abdominal exam: PRESENT: other - Soft, nondistended, nontender to palpation Results Laboratory Results: 03/12/19 06:17 03/12/19 06:17 03/12/19 03/12/19 06:17 06:17 WBC 5.0 RBC 3.20 L Hgb 8.4 L Hct 24.9 L MCV 78 L MCH 26.1 L MCHC 33.5 RDW 26.2 H Plt Count 129 L Seg Neutrophils % 71.4 Lymphocytes % 11.4 L Monocytes % 13.8 H Eosinophils % 2.9 Basophils % 0.5 Absolute Neutrophils 3.6 Absolute Lymphocytes 0.6 Absolute Monocytes 0.7 Absolute Eosinophils 0.1 Absolute Basophils 0.0 Sodium 137.8 Potassium 3.3 L Chloride 107 Carbon Dioxide 32 H Anion Gap -1 L BUN 9 Creatinine 0.81 Est GFR ( Amer) > 60 Est GFR (Non-Af Amer) > 60 Glucose 89 Calcium 8.3 L Magnesium 2.0 Total Bilirubin 1.1 AST 30 ALT 36 Alkaline Phosphatase 77 Total Protein 4.6 L Albumin 2.4 L 03/08/19 03/08/19 13:30 13:30 Creatine Kinase 39 CK-MB (CK-2) 0.44 Troponin I < 0.012 Impressions: Chest X-Ray 03/08/19 00:00 IMPRESSION: No acute cardiopulmonary findings. Assessment & Plan - Diagnosis (1) Anemia Qualifiers: Anemia type: unspecified type Qualified Code(s): D64.9 - Anemia, unspecified Is this a current diagnosis for this admission?: Yes Plan: Although she did not complete her bowel prep she may have had sufficient prep. We will try colonoscopy. I have discussed with the patient risk and benefits of the procedure including risk of colon injury and bleeding as well as cardiopulmonary risks. Patient understands and agrees to proceed
[2019-03-12] MEDS ORDERED: DIPHENHYDRAMINE HCL 50 MG/ML VIAL ONE (09:57)
[2019-03-12] MEDS ORDERED: ONDANSETRON HCL INJ/PF 4 MG/2 ML SDV ONE (09:57)
[2019-03-12] MEDS ORDERED: MIDAZOLAM 2 MG/2 ML INJ ONE ×2 (09:58→13:43)
[2019-03-12] MEDS ORDERED: FENTANYL CITRATE INJ/PF 100 MCG/2 ML AMPUL ONE (09:58)
[2019-03-12] MEDS ORDERED: NALOXONE HCL INJ/PF 0.4 MG/1 ML SDV ONE (09:58)
[2019-03-12] MEDS ORDERED: FLUMAZENIL INJ 0.5 MG/5 ML VIAL ONE (09:58)
[2019-03-12] MEDS ORDERED: GLUCAGON,HUMAN RECOMB 1 MG INJ ONE (09:59)
[2019-03-12] MEDS ORDERED: EPINEPHRINE INJ 1 MG/10 ML DISP.SYRIN ONE (09:59)
[2019-03-12] MEDS: BUSPIRONE HCL 10 MG TABLET PO SCH ×2 (11:17→22:06)
[2019-03-12] MEDS: FUROSEMIDE 20 MG TABLET PO SCH (11:18)
[2019-03-12] MEDS: CITALOPRAM HYDROBROMIDE 20 MG TABLET PO SCH (11:18)
[2019-03-12] MEDS: METOPROLOL TARTRATE 25 MG TABLET PO SCH ×2 (11:18→22:06)
[2019-03-12] MEDS ORDERED: PROPOFOL INJ 200 MG/20 ML VIAL IV ONE (13:43)
--- NOTE | 2019-03-12 14:38 | PDOC H&P ---
History of Present Illness Admission Date/PCP: 03/08/2019 Patient complains of: UGIB, acute delirium History of Present Illness: ZORAN JONES is a 63 year old female with significant past medical history of hypertension, diabetes, carotid disease, coronary artery disease status post bypass graft x3, who presented to the hospital with her daughter via EMS from home complaining of lethargy and weakness. Although patient is laying in the bed and able to answer some questions she is confused and a poor historian. Her daughter is at bedside and is the primary historian. Patient was able to answer me yes and no about her review of system. Per daughter her mother is visiting from [place] after her father in January and has been in [place] for the past month or so. About a month ago patient had a syncopal episode at the house and was brought to the ER for evaluation and then was discharged home. At that time her hemoglobin was 10. Yesterday daughter from patient to be very confused and lethargic than her usual baseline and today she was even worse. Daughter called EMS and when they came to the house patient refused to go to the emergency room. But then patient tried to get out of the chair and almost fell forward and his daughter called EMS again and forced her to come to the emergency room. Per daughter she is not sure if her mother is having any black stool or bright red blood per rectum. She does admit that her mother had a colonoscopy a few years ago but does not know the results. Patient herself denies any use of aspirin, ibuprofen or other NSAIDs on a regular basis. In the ED her hemoglobin was found to be in the 4s. Her stool guaiac was posi tive. surgery and hospitalist were consulted for admission. Past Medical History Cardiac Medical History: Reports: Congestive Heart Failure, Myocardial Infarct ion, Hyperlipidema, Hypertension Pulmonary Medical History: Reports: Chronic Obstructive Pulmonary Disease (COPD) Endocrine Medical History: Reports: Diabetes Mellitus Type 2 Psychiatric Medical History: Reports: Depression Past Surgical History Past Surgical History: Reports: Cardiac Catheterization, Vascular Surgery - carotid Social History Information Source: Patient, Relative Smoking Status: Never Smoker - Advance Directive Resuscitation Status: Full Code Family History Family History: Reviewed & Not Pertinent Parental Family History Reviewed: Yes Children Family History Reviewed: Yes Sibling(s) Family History Reviewed.: Unknown Medication/Allergy Allergies/Adverse Reactions: Penicillins Allergy (Verified 02/19/19 18:42) Review of Systems All systems: reviewed and no additional remarkable complaints except as stated Constitutional: PRESENT: fatigue, weakness - Generalized. ABSENT: chills, fever(s) Cardiovascular: ABSENT: edema Respiratory: ABSENT: cough Gastrointestinal: PRESENT: melena. ABSENT: abdominal pain, nausea, vomiting Genitourinary: ABSENT: dysuria Neurological: PRESENT: confusion, dizziness, weakness - Generalized. ABSENT: abnormal movements, abnormal speech Endocrine: ABSENT: polyuria Physical Exam Vital Signs: Temp Pulse Resp BP Pulse Ox 98.1 F 86 19 108/42 L 95 03/08/19 18:39 03/08/19 18:39 03/08/19 18:39 03/08/19 18:39 03/08/19 18:39 Intake & Output 03/07/19 03/08/19 03/09/19 06:59 06:59 06:59 Intake Total 0 Balance 0 Weight 200 lb 9.93 oz General appearance: PRESENT: no acute distress Head exam: PRESENT: atraumatic, normocephalic Eye exam: PRESENT: EOMI. ABSENT: scleral icterus Ear exam: PRESENT: normal external ear exam Mouth exam: PRESENT: dry mucosa, tongue midline Teeth exam: PRESENT: poor dentation Neck exam: ABSENT: tracheal deviation Respiratory exam: PRESENT: clear to auscultation jil, symmetrical Cardiovascular exam: PRESENT: +S1, +S2 Pulses: PRESENT: +2 pedal pulses bilateral GI/Abdominal exam: PRESENT: normal bowel sounds, soft, tenderness - Epigastric Rectal exam: PRESENT: heme (+) stool - Done by ED physician Extremities exam: ABSENT: +2 edema Neurological exam: PRESENT: altered, oriented to person, CN II-XII grossly intact. ABSENT: oriented to place, oriented to time, oriented to situation Skin exam: PRESENT: other - Pale appearing Results Laboratory Results: 03/08/19 15:50 03/08/19 13:30 03/08/19 03/08/19 03/08/19 13:30 13:30 15:47 WBC Cancelled RBC Cancelled Hgb Cancelled Hct Cancelled MCV Cancelled MCH Cancelled MCHC Cancelled RDW Cancelled Plt Count Cancelled Seg Neutrophils % Cancelled Lymphocytes % Cancelled Monocytes % Cancelled Eosinophils % Cancelled Basophils % Cancelled Absolute Neutrophils Cancelled Absolute Lymphocytes Cancelled Absolute Monocytes Cancelled Absolute Eosinophils Cancelled Absolute Basophils Cancelled Sodium 138.9 Potassium 4.1 Chloride 105 Carbon Dioxide 20 L Anion Gap 14 BUN 71 H Creatinine 1.66 H Est GFR ( Amer) 38 L Est GFR (Non-Af Amer) 31 L Glucose 212 H Calcium 9.0 Total Bilirubin 0.6 AST 29 ALT 26 Alkaline Phosphatase 71 Total Protein 5.3 L Albumin 2.8 L Urine Color Urine Appearance Urine pH Ur Specific Denhoff Urine Protein Urine Glucose (UA) Urine Ketones Urine Blood Urine Nitrite Ur Leukocyte Esterase Urine RBC (Auto) Blood Type B POSITIVE Antibody Screen NEGATIVE 03/08/19 03/08/19 15:50 18:16 WBC 10.9 H RBC 2.14 L Hgb 4.1 L* Hct 13.2 L* MCV 62 L MCH 19.1 L MCHC 31.0 L RDW 24.2 H Plt Count 203 Seg Neutrophils % Not Reportable Lymphocytes % Not Reportable Monocytes % Not Reportable Eosinophils % Not Reportable Basophils % Not Reportable Absolute Neutrophils Not Reportable Absolute Lymphocytes Not Reportable Absolute Monocytes Not Reportable Absolute Eosinophils Not Reportable Absolute Basophils Not Reportable Sodium Potassium Chloride Carbon Dioxide Anion Gap BUN Creatinine Est GFR ( Amer) Est GFR (Non-Af Amer) Glucose Calcium Total Bilirubin AST ALT Alkaline Phosphatase Total Protein Albumin Urine Color YELLOW Urine Appearance CLEAR Urine pH 5.0 Ur Specific Denhoff 1.012 Urine Protein NEGATIVE Urine Glucose (UA) NEGATIVE Urine Ketones NEGATIVE Urine Blood NEGATIVE Urine Nitrite NEGATIVE Ur Leukocyte Esterase NEGATIVE Urine RBC (Auto) 0 Blood Type Antibody Screen 03/08/19 03/08/19 13:30 13:30 Creatine Kinase 39 CK-MB (CK-2) 0.44 Troponin I < 0.012 Assessment and Plan - Diagnosis (1) Upper GI bleed Is this a current diagnosis for this admission?: Yes (2) Supratherapeutic INR Is this a current diagnosis for this admission?: Yes (3) Acute delirium Is this a current diagnosis for this admission?: Yes (4) History of coronary artery bypass graft x 3 Is this a current diagnosis for this admission?: Yes (5) History of carotid artery disease Is this a current diagnosis for this admission?: Yes (6) Essential hypertension Is this a current diagnosis for this admission?: Yes (7) Diabetes mellitus type 2 in obese Is this a current diagnosis for this admission?: Yes (8) Chronic anticoagulation Is this a current diagnosis for this admission?: Yes - Time Time Spent with patient: 35 or more minutes Anticipated discharge: Home - Inpatient Certification Based on my medical assessment, after consideration of the patient's comorbidities, presenting symptoms, or acuity I expect that the services needed warrant INPATIENT care.: Yes I certify that my determination is in accordance with my understanding of Medicare's requirements for reasonable and necessary INPATIENT services [42 CFR 412.3e].: Yes Medical Necessity: Failure to Improve With Outpatient Therapy, Need Close Monitoring Due to Risk of Patient Decompensation, Need For IV Fluids, Need For Continuous Telemetry Monitoring, Need for Neurological Checks, Risk of Complication if Not Cared For in Hospital - Plan Summary Plan Summary: Upper GI bleed-positive stool guaiac with a history of suspected black tarry stool-most likely she is having an upper GI bleed. Her hemoglobin about a month ago was 10 and today it is 4. She was ordered 2 units of packed red blood cells. Surgery is consulted for possible EGD in a.m. Patient currently is slightly delirious and hence this may pose a problem. She does have a history of coronary artery disease and hence her hemoglobin goal should be greater than 8. I would recommend that we give her another 2 units of blood. Repeat CBC in the morning. Admit her to IMCU for close observation for her acute change in mental status. Most likely secondary to her low hemoglobin and hypoperfusion. Keep n.p.o. for possible EGD in the morning. Start on Protonix IV twice daily. Acute delirium-see plan above Coronary artery disease-status post bypass x3 per daughter-she is currently on Coumadin but her INR was supratherapeutic at greater than 8. She received 1 dose of vitamin K due to her upper GI bleed. Will hold warfarin for now and repeat INR. Supratherapeutic INR-see plan above. Hypertension -we will hold home meds at this time and start on IV hydralazine for pressure control. Her medicine reconciliation has not been done yet so I am not sure what she is on at this time. Diabetes mellitus type 2-hold home meds and start her on sliding scale insulin.
[2019-03-12] MEDS ORDERED: FENTANYL CITRATE INJ/PF 100 MCG/2 ML AMPUL IV PRN ×3 (14:41)
--- NOTE | 2019-03-12 15:14 | Operative Report ---
Operative Report DATE OF SURGERY: 03/10/19 PREOPERATIVE DIAGNOSIS: Anemia POSTOPERATIVE DIAGNOSIS: Multiple colon polyps. Pandiverticulosis of the colon. OPERATION: EGD with biopsy. SURGEON: SODNRA CASON ANESTHESIA: LMAC TISSUE REMOVED OR ALTERED: Right colon polyps x2 snare polypectomied and specimens retrieved. Transverse colon polyp snare polypectomied and specimen retrieved. Cecal polyp removed but specimen lost. COMPLICATIONS: None ESTIMATED BLOOD LOSS: Minimal INTRAOPERATIVE FINDINGS: Scattered diverticuli throughout the entire colon including the right colon. No blood in the colon. Fair to poor prep with thick mucus-like liquid throughout the colon. Diminutive polyp at the ileocecal valve. Half centimeter sessile polyps x2 in the right colon. 1 cm sessile polyp at the transverse colon. 2 cm sessile polyp at the descending colon. No large masses seen. PROCEDURE: Informed consent was obtained. Patient was brought to the endoscopy suite. Procedure was done on the LMAC. Digital rectal exam revealed no palpable perianal masses. Endoscope was passed via the patient's anus and it was easily passed to the cecum. Visualization was difficult due to thick mucus-like liquid that cover the colon requiring copious amount of irrigation and aspiration. Certainly perfect visualization once is not obtained due to the fair to poor prep. The appendiceal orifice was clearly visualized as was the ileocecal valve. On the ileocecal valve there was a diminutive polyp which was snare polypectomy but the specimen was lost in the debris. There were scattered diverticuli throughout the colon including the right colon. In the right colon there were two half centimeter sessile polyps which were both snare polypectomied and the specimens were retrieved. At the transverse colon there was a 1 cm sessile polyp which was snare polypectomied and the specimen was retr ieved. At the descending colon there was a 2 cm sessile polyp with a broad base and I was reluctant to attempt a polypectomy of this polyp. Polyp however did not grossly appear malignant. There were multiple diverticuli in the descending and the sigmoid colon. Sigmoid colon and the rectum were difficult to visualize due to the amount of debris but no large masses were seen. Patient tolerated procedure well with no apparent complications. Patient with multiple colon polyps. All of the polyps that were visualized were removed with the exception of the descending colon 2 cm polyp. Await biopsy results. The bowel prep was fair to poor and perfect visualization could not be obtained. Recommend follow-up colonoscopy in the next few weeks as an outpatient with Dr. Murray. He may be able to remove this larger descending colon polyp and also obtain a better visualization of the colon.
--- NOTE | 2019-03-12 16:49 | PDOC PROGRESS REPORT ---
Subjective Progress Note for:: 03/12/19 Subjective:: No complaints at this time other than "I am very hungry". Patient underwent colonoscopy today found multiple polyps with all her movement 1. Recommend patient to have outpatient endoscopy in several weeks for follow-up. Reason For Visit: UPPER GI BLEED,ACUTE DELIRIUM,CKD Physical Exam Vital Signs: Temp Pulse Resp BP Pulse Ox 98.8 F 60 22 H 167/49 H 97 03/12/19 15:32 03/12/19 15:32 03/12/19 15:32 03/12/19 15:32 03/12/19 15:32 Intake & Output 03/11/19 03/12/19 03/13/19 06:59 06:59 06:59 Intake Total 2874 869 200 Output Total 900 1125 0 Balance 1973 - 200 Weight 94.8 kg 92.1 kg General appearance: PRESENT: no acute distress, well-developed, well-nourished Neck exam: ABSENT: carotid bruit, JVD, lymphadenopathy, thyromegaly Respiratory exam: PRESENT: clear to auscultation jil. ABSENT: rales, rhonchi, wheezes Cardiovascular exam: PRESENT: RRR. ABSENT: diastolic murmur, rubs, systolic murmur Pulses: PRESENT: normal dorsalis pedis pul Vascular exam: PRESENT: normal capillary refill GI/Abdominal exam: PRESENT: normal bowel sounds, soft. ABSENT: distended, guarding, mass, organolmegaly, rebound, tenderness Extremities exam: PRESENT: full ROM. ABSENT: calf tenderness, clubbing, pedal edema Neurological exam: PRESENT: alert, awake, oriented to person, oriented to place, oriented to time, oriented to situation, CN II-XII grossly intact. ABSENT: motor sensory deficit Psychiatric exam: PRESENT: appropriate affect, normal mood. ABSENT: homicidal ideation, suicidal ideation Skin exam: PRESENT: dry, intact, warm. ABSENT: cyanosis, rash Results Laboratory Results: 03/12/19 06:17 03/12/19 06:17 03/12/19 03/12/19 06:17 06:17 WBC 5.0 RBC 3.20 L Hgb 8.4 L Hct 24.9 L MCV 78 L MCH 26.1 L MCHC 33.5 RDW 26.2 H Plt Count 129 L Seg Neutrophils % 71.4 Lymphocytes % 11.4 L Monocytes % 13.8 H Eosinophils % 2.9 Basophils % 0.5 Absolute Neutrophils 3.6 Absolute Lymphocytes 0.6 Absolute Monocytes 0.7 Absolute Eosinophils 0.1 Absolute Basophils 0.0 Sodium 137.8 Potassium 3.3 L Chloride 107 Carbon Dioxide 32 H Anion Gap -1 L BUN 9 Creatinine 0.81 Est GFR ( Amer) > 60 Est GFR (Non-Af Amer) > 60 Glucose 89 Calcium 8.3 L Magnesium 2.0 Total Bilirubin 1.1 AST 30 ALT 36 Alkaline Phosphatase 77 Total Protein 4.6 L Albumin 2.4 L 03/08/19 03/08/19 13:30 13:30 Creatine Kinase 39 CK-MB (CK-2) 0.44 Troponin I < 0.012 Impressions: Chest X-Ray 03/08/19 00:00 IMPRESSION: No acute cardiopulmonary findings. Assessment and Plan - Diagnosis (1) Gastrointestinal bleed Qualifiers: GI bleed type/associated pathology: melena Qualified Code(s): K92.1 - Melena Is this a current diagnosis for this admission?: Yes Plan: 03/11/2019-this 63-year-old female admitted with GI bleed EGD was done which was negative for bleeding source. She is getting colonic prep for colonoscopy and possible biopsy. She is on Coumadin at home INR was supratherapeutic at the time of admission Coumadin on hold now. Patient received 4 units of blood transfusion during the hospital stay hemoglobin is stable around 8.2. 03/12/[id number]-kida-old minute for GI bleeding EGD and colonoscopy complete. Colonoscopy today showed multiple polyps all of which were removed but 1. Patient did receive 4 units of blood during transfusion for hemoglobin of 8.2. At this time patient has a hemoglobin 8.4 we will repeat in the a.m. If stable will discharge home. (2) History of coronary artery bypass graft x 3 Is this a current diagnosis for this admission?: Yes (3) Diabetes mellitus type 2 in obese Is this a current diagnosis for this admission?: Yes Plan: continue with Lantus at 8 units which is half the dose that she takes at home. Continue with sliding scale insulin. 03/11/2019-patient has history of type 2 diabetes mellitus. On Lantus 8 units and insulin sliding scale. Hemoglobin A1c is 5.4. 03/12/2019-continue patient on current sliding scale and Lantus 8 units. Hemoglobin A1c 5.4. Patient was started on diabetic diet today at 1600. (4) Hypokalemia Is this a current diagnosis for this admission?: Yes Plan: 03/11/2019-patient serum potassium is 3.3 she is going to receive potassium supplementation on daily basis. Hypokalemia may be secondary to diuretics. 03/12/2019-serum potassium 3.3. 20 mg of KCl p.o. x1 today repeat BMP in a.m. - Time Time Spent with patient: 15-24 minutes Disposition: Patient with a history of three-vessel CABG. Unsure as to why she is on Cou madin at this time but the benefit of Coumadin at this time did not weigh the risk. We will stop Coumadin have patient follow-up with her primary care provider or under baster who provided Coumadin and have them restart if desired. - Inpatient Certification Medical Necessity: Risk of Complication if Not Cared For in Hospital
[2019-03-12] MEDS ORDERED: POTASSIUM CHLORIDE 10 MEQ CAPSULE.ER PO ONE (17:00)
[2019-03-12] MEDS: INSULIN GLARGINE,HUM.REC.ANLOG 1,000 UNIT/10 ML VIAL SUBCUT SCH (21:59)
[2019-03-12] MEDS: ATORVASTATIN CALCIUM 80 MG TABLET PO SCH (22:06)
[2019-03-13 06:17] LABS: HEMATOCRIT 26.3 % (36.0-47.0); HEMOGLOBIN 8.7 g/dL (12.0-15.5); MEAN CORPUSCULAR HGB CONC 33.1 g/dL (32.0-36.0); MEAN CORPUSCULAR VOLUME 78 fl (80-97); PLATELET COUNT 142 10^3/uL (150-450); RED BLOOD COUNT 3.35 10^6/uL (3.72-5.28); RED CELL DISTRIBUTION WIDTH 25.8 % (11.5-14.0); WHITE BLOOD COUNT 6.2 10^3/uL (4.0-10.5)
[2019-03-13 06:33] LABS: BLOOD UREA NITROGEN 15 mg/dL (7-20); CALCIUM 7.9 mg/dL (8.4-10.2); GLUCOSE 120 mg/dL (75-110); POTASSIUM 3.6 mmol/L (3.6-5.0)
[2019-03-13 06:39] LABS: CARBON DIOXIDE 31 mmol/L (22-30); CHLORIDE 106 mmol/L (98-107); SODIUM 139.4 mmol/L (137-145)
[2019-03-13 06:44] LABS: ANION GAP 2 (5-19)
--- NOTE | 2019-03-13 08:22 | PDOC DISCHARGE SUMMARY ---
General - Admit/Disc Date/PCP Admission Date/Primary Care Provider: 03/08/19 19:27 Discharge Date: 03/13/19 - Discharge Diagnosis (1) Gastrointestinal bleed Is this a current diagnosis for this admission?: Yes (2) History of coronary artery bypass graft x 3 Is this a current diagnosis for this admission?: Yes (3) Diabetes mellitus type 2 in obese Is this a current diagnosis for this admission?: Yes (4) Hypokalemia Is this a current diagnosis for this admission?: Yes - Additional Information Resuscitation Status: Full Code Discharge Diet: As Tolerated Discharge Activity: Activity As Tolerated Home Medications: Amlodipine Besylate [Norvasc 5 mg Tablet] 5 mg PO Q12 03/08/19 Aspirin [Ecotrin 81 mg EC Tablet] 81 mg PO Q12 03/08/19 Atorvastatin Calcium [Lipitor 80 mg Tablet] 80 mg PO QHS 03/08/19 Citalopram Hydrobromide [Celexa 10 mg Tablet] 10 mg PO DAILY 03/08/19 Furosemide [Lasix 20 mg Tablet] 20 mg PO DAILY 03/08/19 Hydralazine HCl [Apresoline 50 mg Tablet] 50 mg PO Q8 03/08/19 Insulin Glargine,Hum.rec.anlog [Lantus Insulin 100 Unit/1 ml 10 ml] 16 units SQ QHS 03/08/19 Metoprolol Tartrate [Lopressor 25 mg Tablet] 12.5 mg PO Q12 03/08/19 History of Present Illness History of Present Illness: ZORAN JONES is a 63 year old female who presented to the ER with melena, hemoglobin of 4 and chronic Coumadin use. Patient was transfused with 4 units packed red cells she underwent a endoscopy as well as colonoscopy. Colonoscopy did find multiple polyps all of which one were removed. Patient has had a stable hemoglobin now for several days and is ready to return home. Patient need to follow-up with primary care practitioner within 1 week to determine if they want her to continue on Coumadin therapy for which she states she takes for "heart surgery". At this time I feel the benefits do not outweigh the risk associated with Coumadin use and will leave this to her primary care practitioner's expertise for restarting or not. Patient also should see food safety officer within 3 weeks to establish if repeat colonoscopy is warranted. Physical Exam Vital Signs: Temp Pulse Resp BP Pulse Ox 97.6 F 70 22 H 135/60 H 90 L 03/13/19 03:11 03/13/19 07:00 03/13/19 03:11 03/13/19 03:11 03/13/19 03:11 Intake & Output 03/12/19 03/13/19 03/14/19 06:59 06:59 06:59 Intake Total 869 421 Output Total 1125 600 Balance -256 -179 Weight 92.1 kg 92.3 kg General appearance: PRESENT: no acute distress, well-developed, well-nourished Head exam: PRESENT: atraumatic, normocephalic Eye exam: PRESENT: conjunctiva pink, EOMI, PERRLA. ABSENT: scleral icterus Ear exam: PRESENT: normal external ear exam Mouth exam: PRESENT: moist, tongue midline Neck exam: ABSENT: carotid bruit, JVD, lymphadenopathy, thyromegaly Respiratory exam: PRESENT: clear to auscultation jil. ABSENT: rales, rhonchi, wheezes Cardiovascular exam: PRESENT: RRR. ABSENT: diastolic murmur, rubs, systolic murmur Pulses: PRESENT: normal dorsalis pedis pul Vascular exam: PRESENT: normal capillary refill GI/Abdominal exam: PRESENT: normal bowel sounds, soft. ABSENT: distended, guarding, mass, organolmegaly, rebound, tenderness Rectal exam: PRESENT: deferred Extremities exam: PRESENT: full ROM. ABSENT: calf tenderness, clubbing, pedal edema Neurological exam: PRESENT: alert, awake, oriented to person, oriented to place, oriented to time, oriented to situation, CN II-XII grossly intact. ABSENT: motor sensory deficit Psychiatric exam: PRESENT: appropriate affect, normal mood. ABSENT: homicidal ideation, suicidal ideation Skin exam: PRESENT: dry, intact, warm. ABSENT: cyanosis, rash Results Laboratory Results: 03/13/19 05:55 03/13/19 05:55 03/13/19 03/13/19 05:55 05:55 WBC 6.2 RBC 3.35 L Hgb 8.7 L Hct 26.3 L MCV 78 L MCH 26.0 L MCHC 33.1 RDW 25.8 H Plt Count 142 L Sodium 139.4 Potassium 3.6 Chloride 106 Carbon Dioxide 31 H Anion Gap 2 L BUN 15 Creatinine 0.78 Est GFR ( Amer) > 60 Est GFR (Non-Af Amer) > 60 Glucose 120 H Calcium 7.9 L 03/08/19 03/08/19 13:30 13:30 Creatine Kinase 39 CK-MB (CK-2) 0.44 Troponin I < 0.012 Impressions: Chest X-Ray 03/08/19 00:00 IMPRESSION: No acute cardiopulmonary findings. Qualifiers - * PATIENT BEING DISCHARGED WITH ANY OF THE FOLLOWING DIAGNOSIS: No Acute Heart Failure - Is this a Heart Failure Patient?: No Plan Discharge Plan: 1. Follow-up with primary care within 1 week to establish if reinitiation of Coumadin therapy is warranted. 2. Follow-up with gastroenterology on outpatient basis to determine if outpatient repeat colonoscopy is warranted remove last polyp. Time Spent: Greater than 30 Minutes
--- NOTE | 2019-03-13 09:10 | PDOC PROGRESS REPORT ---
Subjective Progress Note for:: 03/13/19 Reason For Visit: UPPER GI BLEED,ACUTE DELIRIUM,CKD Physical Exam Vital Signs: Temp Pulse Resp BP Pulse Ox 97.6 F 70 22 H 158/63 H 90 L 03/13/19 08:58 03/13/19 08:58 03/13/19 08:58 03/13/19 08:58 03/13/19 08:58 Intake & Output 03/12/19 03/13/19 03/14/19 06:59 06:59 06:59 Intake Total 869 421 Output Total 1125 600 Balance -256 -179 Weight 92.1 kg 92.3 kg General appearance: PRESENT: no acute distress Head exam: PRESENT: normocephalic Eye exam: PRESENT: EOMI Ear exam: PRESENT: normal external ear exam Mouth exam: PRESENT: moist Neck exam: PRESENT: full ROM Respiratory exam: PRESENT: clear to auscultation jil Cardiovascular exam: PRESENT: RRR Pulses: PRESENT: normal radial pulses, normal femoral pulses GI/Abdominal exam: PRESENT: soft Rectal exam: PRESENT: deferred Extremities exam: PRESENT: full ROM Musculoskeletal exam: PRESENT: full ROM Neurological exam: PRESENT: alert, awake, oriented to person Psychiatric exam: PRESENT: appropriate affect Skin exam: PRESENT: dry - pt without obvious gi bleeding hct this am improved pt can be discharged home with instructions to f/u iwth her primary and to make arrangements for gi consult as op for colonoscopy. Results Laboratory Results: 03/13/19 05:55 03/13/19 05:55 03/13/19 03/13/19 05:55 05:55 WBC 6.2 RBC 3.35 L Hgb 8.7 L Hct 26.3 L MCV 78 L MCH 26.0 L MCHC 33.1 RDW 25.8 H Plt Count 142 L Sodium 139.4 Potassium 3.6 Chloride 106 Carbon Dioxide 31 H Anion Gap 2 L BUN 15 Creatinine 0.78 Est GFR ( Amer) > 60 Est GFR (Non-Af Amer) > 60 Glucose 120 H Calcium 7.9 L 03/08/19 03/08/19 13:30 13:30 Creatine Kinase 39 CK-MB (CK-2) 0.44 Troponin I < 0.012 Impressions: Chest X-Ray 03/08/19 00:00 IMPRESSION: No acute cardiopulmonary findings.
[2019-03-13] MEDS: INSULIN LISPRO 100 UNIT/ML 3 ML VIAL SUBCUT SCH (09:13)
[2019-03-13] MEDS: FUROSEMIDE 20 MG TABLET PO SCH (09:19)
[2019-03-13] MEDS: CITALOPRAM HYDROBROMIDE 20 MG TABLET PO SCH (09:19)
[2019-03-13] MEDS: BUSPIRONE HCL 10 MG TABLET PO SCH (09:19)
[2019-03-13] MEDS: METOPROLOL TARTRATE 25 MG TABLET PO SCH (09:19)
[2019-03-13 10:12] VITALS: BP 140/62
== END 2019-03-13 10:47 | disposition home or self-care (01) | DRG 379 ==
LOC: ER 13:55 → EH 19:27 → ICU 21:33 → 3W 03-10 16:40
PROVIDERS: ADMIT Family Medicine; ATTEND Family Medicine
PROC: 30233N1 Transfusion of Nonautologous Red Blood Cells into Peripheral Vein, Percutaneous Approach (ICD-10-PCS; principal; 2019-03-08)
PROC: 30233K1 Transfusion of Nonautologous Frozen Plasma into Peripheral Vein, Percutaneous Approach (ICD-10-PCS; 2019-03-08)
PROC: 05HY33Z Insertion of Infusion Device into Upper Vein, Percutaneous Approach (ICD-10-PCS; 2019-03-08)
PROC: 0DD38ZX Extraction of Lower Esophagus, Via Natural or Artificial Opening Endoscopic, Diagnostic (ICD-10-PCS; 2019-03-10)
PROC: 0DBH8ZZ Excision of Cecum, Via Natural or Artificial Opening Endoscopic (ICD-10-PCS; 2019-03-12)
PROC: 0DBL8ZX Excision of Transverse Colon, Via Natural or Artificial Opening Endoscopic, Diagnostic (ICD-10-PCS; 2019-03-12)
DX: K92.1 Melena (principal); D64.9 Anemia, unspecified; K63.5 Polyp of colon; K29.60 Other gastritis without bleeding; K44.9 Diaphragmatic hernia without obstruction or gangrene; K21.0 Gastro-esophageal reflux disease with esophagitis; I50.9 Heart failure, unspecified; E78.00 Pure hypercholesterolemia, unspecified; E87.6 Hypokalemia; I11.0 Hypertensive heart disease with heart failure; J44.9 Chronic obstructive pulmonary disease, unspecified; E11.8 Type 2 diabetes mellitus with unspecified complications; R41.0 Disorientation, unspecified; R79.1 Abnormal coagulation profile; E66.01 Morbid (severe) obesity due to excess calories; I25.2 Old myocardial infarction; Z79.01 Long term (current) use of anticoagulants; Z79.84 Long term (current) use of oral hypoglycemic drugs; Z79.82 Long term (current) use of aspirin; Z79.4 Long term (current) use of insulin; Z95.1 Presence of aortocoronary bypass graft; Z68.38 Body mass index [BMI] 38.0-38.9, adult
CPT/HCPCS: 36415; 36430; 43239; 45385; 71045; 731; 80048; 80053; 80061; 81001; 82550; 82553; 82962; 83036; 83735; 84100; 84443; 84484; 85025; 85027; 85610; 86850; 86900; 86901; 86920; 88305; 88342; 93005; 93010; 96374; 99291; C1751; J0171; J1200; J1610; J1642; J1815; J2250; J2310; J2405; J2704; J3010; J3480; J3490; J7030; P9016; P9017; S0164

== ENCOUNTER 2020-04-24 14:05 | Emergency (ER) | payer MEDICARE ==
[2020-04-24] MEDS ORDERED: ONDANSETRON HCL INJ/PF 4 MG/2 ML SDV IV ONE ×2 (16:01→18:10)
--- NOTE | 2020-04-24 16:08 | ER Document Report ---
ED General - General Chief Complaint: Nausea Stated Complaint: ABDOMINAL PAIN,NAUSEA Time Seen by Provider: 04/24/20 15:37 Notes: 64-year-old female with medical history of diabetes, coronary artery disease presenting today with abdominal pain. Abdominal pain is described as nausea. She says random episodes of vomiting. She says when asked what the pain feels like she states it feels like nausea. She is tried Pepto-Bismol without relief. She states she does not know what medical conditions she has does not know what medication she is on. States she is diabetic and takes a pill for it but does not know what pill. She is here visiting her daughter from [place]. Is seen by a provider up in [place]. Denies any shortness of breath. She states she has had a cough for about 1 week. It is productive. She denies any fevers or chills. Does state that her urine is more frothy and that she had an increase in urination. She is very hesitant to answer my questions or provide additional information as she says that her daughter gets mad at her. There was also a note in the chart from the daughter that stated that the patient exacerbates her symptoms periodically and has had 0 episodes of vomiting. Also requesting us to call the daughter. She denies any pain with urination. Has been able to drink fluids. Was able to eat a piece of toast with peanut butter on it. TRAVEL OUTSIDE OF THE [place] IN LAST 30 DAYS: No - Related Data Allergies/Adverse Reactions: Penicillins Allergy (Verified 02/19/19 18:42) Past Medical History - Social History Smoking Status: Unknown if Ever Smoked Family History: Reviewed & Not Pertinent - Past Medical History Cardiac Medical History: Reports: Hx Congestive Heart Failure, Hx Heart Attack, Hx Hypercholesterolemia, Hx Hypertension Pulmonary Medical History: Reports: Hx COPD Endocrine Medical History: Reports: Hx Diabetes Mellitus Type 2 Renal/ Medical History: Denies: Hx Peritoneal Dialysis Psychiatric Medical History: Reports: Hx Depression Past Surgical History: Reports: Hx Cardiac Catheterization, Hx Cardiac Surgery - triple bypass, Hx Vascular Surgery - carotid Review of Systems - Review of Systems Constitutional: No symptoms reported EENT: No symptoms reported Cardiovascular: No symptoms reported Respiratory: See HPI Gastrointestinal: See HPI Genitourinary: See HPI Female Genitourinary: No symptoms reported Musculoskeletal: No symptoms reported Skin: No symptoms reported Hematologic/Lymphatic: No symptoms reported Neurological/Psychological: No symptoms reported Physical Exam - Vital signs Vitals: Temp Pulse Resp BP Pulse Ox 98.1 F 52 L 20 136/61 H 97 04/24/20 15:02 04/24/20 15:02 04/24/20 15:02 04/24/20 15:02 04/24/20 15:02 Interpretation: Hypotensive - Notes Notes: Adult General: GENERAL: Alert, interacts well. No acute distress HEAD: Normocephalic, atraumatic EYES: Pupils equal, round and reactive to light. Extraocular movements intact. ENT: Oral mucosa moist, tongue midline. Oropharynx unremarkable. Airway patent. Nares patent. NECK: Full range of motion. Supple. Trachea midline. No lymphadenopathy. LUNGS: Mild expiratory wheeze in right upper lung field, no rales, or rhonchi. No respiratory distress. Nontender chest wall. HEART: Regular rate and rhythm. No murmurs, rubs or gallops. ABDOMEN: Soft, RUQ, LUQ and epigastric region. Nondistended. (-) Paris sign. Bowel sounds present in all 4 quadrants. No rebound, guarding or masses. GENITOURINARY: Deferred EXTREMITIES: Moves all 4 extremities spontaneously. No edema, normal radial and dorsal pedis pulses bilaterally. No cyanosis. BACK: No cervical, thoracic, lumbar midline tenderness. No saddle anesthesia, normal distal neurovascular exam. Moves all extremities with full range of motion. NEUROLOGICAL: Alert and oriented x3. Normal speech. Cranial nerves II through XII grossly intact. Strength 5/ 5 in all extremities. PSYCH: Normal affect, normal mood. SKIN: Warm, dry, normal turgor. No rashes or lesions noted. Course - Re-evaluation Re-evalutation: 04/24/20 16:18 Attempted to call daughter Meghana Torres. Went directly to [employer] and the mail box was full. 04/24/20 18:33 Patients urinalysis shows elevated glucose. Additional labs are unremarkable. I have reevaluated the patient. States that her nausea has much improved but she still is a little bit nauseous. I discussed with her that I can repeat dose her some Zofran. Repeat evaluation of her abdomen shows that it is soft, nontender. Patient continues to be in no acute distress. Continues to deny any additional symptoms at this time. She denies any chest pain, shortness of breath, lightheadedness or dizziness. I will PO challenge the patient. I was notified by the nurse that the patient denies any nausea at this time and patient reports that she feels fine. I am still pending a PO challenge at this time. If she is able to tolerate p.o. I will discharge her with Zofran. I revaluated the patient. She denies any continued nausea. Is able to keep fluids and food down. I also discussed return precautions with the patient to include returning her symptoms and development of new symptoms. Patient acknowledges and verbalizes understanding of instructions and plan. All questions answered. - Vital Signs Vital signs: Temp Pulse Resp BP Pulse Ox 98.2 F 53 L 18 145/66 H 95 04/24/20 18:17 04/24/20 18:17 04/24/20 18:17 04/24/20 18:17 04/24/20 18:17 - Laboratory Result Diagrams: 04/24/20 16:20 04/24/20 16:20 Laboratory results interpreted by me: 04/24/20 04/24/20 04/24/20 16:20 16:20 16:20 RBC 5.82 H MCH 26.2 L RDW 16.1 H Carbon Dioxide 31 H Est GFR ( Amer) 58 L Est GFR (MDRD) Non-Af 48 L AST 53 H Alkaline Phosphatase 140 H Urine Glucose (UA) >=500 H Urine Blood SMALL H Discharge - Discharge Clinical Impression: Nausea Condition: Stable Disposition: HOME, SELF-CARE Instructions: Nausea or Vomiting, Nonspecific ([facility]) Additional Instructions: Please follow-up with your primary care provider soon as possible. You may use the zofran if you become nauseated again. Please return to the emergency department if you have worsening symptoms or develop new symptoms.
--- NOTE | 2020-04-24 16:54 | RADIOLOGY REPORT (SQ) ---
EXAM DESCRIPTION: CHEST SINGLE VIEW IMAGES COMPLETED DATE/TIME: 04/24/2020 4:39 pm REASON FOR STUDY: cough COMPARISON: 03/08/2019 EXAM PARAMETERS: NUMBER OF VIEWS: One view. TECHNIQUE: Single frontal radiographic view of the chest acquired. RADIATION DOSE: NA LIMITATIONS: None. FINDINGS: LUNGS AND PLEURA: No opacities, masses or pneumothorax. No pleural effusion. MEDIASTINUM AND HILAR STRUCTURES: No masses. Contour normal. HEART AND VASCULAR STRUCTURES: Cardiomegaly. No pulmonary edema. BONES: No acute findings. HARDWARE: Sternotomy wires. OTHER: No other significant finding. IMPRESSION: Cardiomegaly without pulmonary edema. TECHNICAL DOCUMENTATION: JOB ID: [id number] 2010 [employer]- All Rights Reserved Reading location - IP/workstation name: [email or web address]
[2020-04-24 17:12] LABS: ABSOLUTE EOSINOPHILS # (AUTO) 0.1 10^3/uL (0.0-0.6); ABSOLUTE LYMPHOCYTES (AUTO) 0.9 10^3/uL (0.5-4.7); ABSOLUTE MONOCYTES (AUTO) 0.6 10^3/uL (0.1-1.4); ABSOLUTE NEUT (AUTO) 3.6 10^3/uL (1.7-8.2); BASOPHILS % (AUTO) 0.4 % (0-2); EOSINOPHILS % (AUTO) 1.9 % (0-6); HEMATOCRIT 46.4 % (36.0-47.0); HEMOGLOBIN 15.2 g/dL (12.0-15.5); LYMPHOCYTES % (AUTO) 16.7 % (13-45); MEAN CORPUSCULAR HEMOGLOBIN 26.2 pg (27.0-33.4); MEAN CORPUSCULAR HGB CONC 32.8 g/dL (32.0-36.0); MEAN CORPUSCULAR VOLUME 80 fl (80-97); MONOCYTES % (AUTO) 11.4 % (3-13); PLATELET COUNT 161 10^3/uL (150-450); RED BLOOD COUNT 5.82 10^6/uL (3.72-5.28); RED CELL DISTRIBUTION WIDTH 16.1 % (11.5-14.0); SEGMENTED NEUTROPHILS % (AUTO) 69.6 % (42-78); TOTAL CELLS COUNTED % (AUTO) 100 %; WHITE BLOOD COUNT 5.2 10^3/uL (4.0-10.5)
[2020-04-24 17:23] LABS: APPEARANCE,URINE SLIGHTLY-CLOUDY; BILIRUBIN,URINE NEGATIVE (NEGATIVE); COLOR,URINE YELLOW; GLUCOSE, URINE >=500 mg/dL (NEGATIVE); KETONES,URINE NEGATIVE (NEGATIVE); LEUKOCYTE ESTERASE,URINE NEGATIVE (NEGATIVE); NITRITE,URINE NEGATIVE (NEGATIVE); PROTEIN,URINE NEGATIVE (NEGATIVE); URINE SPECIFIC GRAVITY 1.017; UROBILINOGEN,URINE NEGATIVE mg/dL (<2.0)
[2020-04-24 17:36] LABS: ALBUMIN 3.9 g/dL (3.5-5.0); ALKALINE PHOSPHATASE 140 U/L (38-126); ANION GAP 7 (5-19); ASPARTATE AMINO TRANSFERASE 53 U/L (14-36); BILIRUBIN,TOTAL 0.7 mg/dL (0.2-1.3); BLOOD UREA NITROGEN 20 mg/dL (7-20); CALCIUM 9.6 mg/dL (8.4-10.2); CARBON DIOXIDE 31 mmol/L (22-30); CHLORIDE 104 mmol/L (98-107); GLUCOSE 106 mg/dL (75-110); POTASSIUM 3.6 mmol/L (3.6-5.0); TOTAL PROTEIN 7.1 g/dL (6.3-8.2)
[2020-04-24 18:22] VITALS: BP 145/66
[2020-04-24] MEDS ORDERED: ONDANSETRON ODT 4 MG TAB (6 TAB/ER DISP) PO PRN (19:12)
== END 2020-04-24 19:27 | disposition home or self-care (01) ==
LOC: ER 14:05
DX: R11.2 Nausea with vomiting, unspecified (principal); R10.9 Unspecified abdominal pain; E11.9 Type 2 diabetes mellitus without complications; I25.10 Atherosclerotic heart disease of native coronary artery without angina pectoris; R05 Cough; Z88.0 Allergy status to penicillin; I50.9 Heart failure, unspecified
CPT/HCPCS: 99284; 96374; 36415; 83690; 85025; 80053; 81001; 71045; J2405; A9270

== ENCOUNTER 2020-08-30 21:20 | Inpatient (IN) | payer MEDICARE ==
[2020-08-30 21:59] LABS: HEMOGLOBIN 13.6 g/dL (12.0-15.5); MEAN CORPUSCULAR HEMOGLOBIN 26.4 pg (27.0-33.4); MEAN CORPUSCULAR HGB CONC 33.9 g/dL (32.0-36.0); MEAN CORPUSCULAR VOLUME 78 fl (80-97); PLATELET COUNT 180 10^3/uL (150-450); RED BLOOD COUNT 5.13 10^6/uL (3.72-5.28); RED CELL DISTRIBUTION WIDTH 16.3 % (11.5-14.0); WHITE BLOOD COUNT 15.5 10^3/uL (4.0-10.5)
[2020-08-30 22:24] LABS: ALKALINE PHOSPHATASE 127 U/L (38-126); ANION GAP 8 (5-19); ASPARTATE AMINO TRANSFERASE 32 U/L (14-36); BILIRUBIN,DIRECT 0.1 mg/dL (0.0-0.4); BLOOD UREA NITROGEN 25 mg/dL (7-20); CALCIUM 9.8 mg/dL (8.4-10.2); CARBON DIOXIDE 28 mmol/L (22-30); CHLORIDE 98 mmol/L (98-107); CREATINE KINASE 69 U/L (30-135); GLUCOSE 163 mg/dL (75-110); POTASSIUM 3.3 mmol/L (3.6-5.0); TOTAL PROTEIN 7.1 g/dL (6.3-8.2)
[2020-08-30 22:32] LABS: ABSOLUTE LYMPHOCYTES# (MANUAL) 0.9 10^3/uL (0.5-4.7); ABSOLUTE MONOCYTES # (MANUAL) 0.6 10^3/uL (0.1-1.4); BAND NEUTROPHILS % (MANUAL) 2 % (3-5); BASOPHILS % (MANUAL) 0 % (0-2); EOSINOPHILS % (MANUAL) 0 % (0-6); LYMPHOCYTES % (MANUAL) 6 % (13-45); MONOCYTES % (MANUAL) 4 % (3-13); SEGMENTED NEUTROPHILS % (MAN) 88 % (42-78); TOTAL CELLS COUNTED 100
[2020-08-30 22:33] LABS: ANISOCYTOSIS 1+; PLATELET COMMENT ADEQUATE; POLYCHROMASIA 1+
[2020-08-30 22:36] LABS: CREATINE KINASE MB 0.59 ng/mL (<4.55)
[2020-08-30 22:40] LABS: TROPONIN I 0.034 ng/mL
--- NOTE | 2020-08-30 22:58 | RADIOLOGY REPORT (SQ) ---
EXAM DESCRIPTION: XR CHEST 1 VIEW COMPLETED DATE/TME: 08/30/2020 22:09 CLINICAL HISTORY: 64 years, Female, shortness of breath COMPARISON: 04/24/2020 chest NUMBER OF VIEWS: 1 TECHNIQUE: Portable chest LIMITATIONS: None. FINDINGS: Stable cardiomegaly and postsurgical change. Osteopenia. Atheromatous change thoracic aorta. No pneumothorax. Minimal infiltrate right lung base IMPRESSION: Cardiomegaly with minimal right basilar infiltrate copyright 2011 [employer]- All Rights Reserved
[2020-08-31 00:55] LABS: APPEARANCE,URINE CLEAR; BILIRUBIN,URINE NEGATIVE (NEGATIVE); COLOR,URINE YELLOW; GLUCOSE, URINE >=500 mg/dL (NEGATIVE); KETONES,URINE NEGATIVE (NEGATIVE); LEUKOCYTE ESTERASE,URINE NEGATIVE (NEGATIVE); NITRITE,URINE NEGATIVE (NEGATIVE); PROTEIN,URINE NEGATIVE (NEGATIVE); URINE SPECIFIC GRAVITY 1.007; UROBILINOGEN,URINE NEGATIVE mg/dL (<2.0)
[2020-08-31] MEDS ORDERED: DEXAMETHASONE SOD PHOS INJ 10 MG/1 ML VIAL IV ONE (02:16)
[2020-08-31] MEDS ORDERED: NORMAL SALINE 1000 ML 2,170 ML IV ONE (02:17)
[2020-08-31] MEDS ORDERED: AZITHROMYCIN INJ 500 MG VIAL IV ONE (02:17)
[2020-08-31] MEDS ORDERED: CEFTRIAXONE 1 GM/D5W RTU 1 GM/50 ML RTUPB IV ONE (02:17)
[2020-08-31] MEDS ORDERED: LEVALBUTEROL HCL NEB 1.25 MG/3 ML AMPUL NEB ONE (02:19)
--- NOTE | 2020-08-31 02:26 | ER Document Report ---
ED General - General Chief Complaint: COPD Exacerbation Stated Complaint: SHORTNESS OF BREATH Time Seen by Provider: 08/31/20 02:00 TRAVEL OUTSIDE OF THE [place] IN LAST 30 DAYS: No - HPI Context: Chief Complaint: [Cough and dyspnea] [64-year-old female with a history of COPD presents to the emergency department complaining of shortness of breath and cough that has been present for approximately 1 week. Patient states cough is nonproductive. Patient states she used to smoke but quit several years ago when her now was diagnosed with lung cancer. Patient denies history of COVID-19 infection, known exposure to Covid positive persons or known exposure to persons under investigation for COVID-19. Patient denies fever, chills, chest pain, nausea, vomiting, loss of sense of taste or loss of sense of smell. Patient does not use home O2. ] History obtained from [patient] Symptoms began:[7 days ago] Onset: [Gradual] Timing: [Gradual] Quality: [Feeling of fatigue and dyspnea] Intensity: [Severe per patient] Location: [Lungs] Radiation: [Denies] [The pain does not migrate to a new location.] Aggravating factors: [none] Relieving factors: [none] Positive SOB [Denies] nausea [Denies] vomiting [Denies] sweats [Denies] fever [Denies] cough [Denies] calf or leg swelling or pain - Related Data Allergies/Adverse Reactions: Penicillins Allergy (Verified 08/30/20 21:50) Past Medical History - General Information source: Patient - Social History Smoking Status: Former Smoker Family History: Reviewed & Not Pertinent Patient has homicidal ideation: No - Past Medical History Cardiac Medical History: Reports: Hx Congestive Heart Failure, Hx Heart Attack, Hx Hypercholesterolemia, Hx Hypertension Pulmonary Medical History: Reports: Hx COPD Endocrine Medical History: Reports: Hx Diabetes Mellitus Type 2 Renal/ Medical History: Denies: Hx Peritoneal Dialysis Psychiatric Medical History: Reports: Hx Depression Past Surgical History: Reports: Hx Cardiac Catheterization, Hx Cardiac Surgery - triple bypass, Hx Vascular Surgery - carotid Review of Systems - Review of Systems Notes: Review of systems as below unless otherwise stated in HPI. CONSTITUTIONAL [No] fever, [No] chills. EYES [No] eye pain. ENT [No] URI symptoms, [No] sore throat, [No] ear pain. CARDIOVASCULAR [No] chest pain, [No] palpitations, [No] edema. RESPIRATORY Positive cough, positive SOB, [No] wheezing. GASTROINTESTINAL [No] abdominal pain, [No] nausea, [No] Diarrhea, [No] Vomiting, [No] constipation, [No] melena, [No] rectal bleeding. GENITOURINARY [No] dysuria, [No] urinary frequency, [No] hematuria, [No] urinary urgency, [No] vaginal discharge, [No] vaginal bleeding. MUSCULOSKELETAL [No] Back pain. SKIN [No] Rash. NEUROLOGIC [No] Headache, [No] recent seizures, [No] paralysis,[No] parathesias. ENDOCRINE [No] polyuria. HEMO/LYMPATIC [No] easy brusing PSYCHIATRIC [No] depression. Physical Exam - Vital signs Vitals: Temp Pulse Resp BP Pulse Ox 98.3 F 69 20 114/63 87 L 08/30/20 21:27 08/30/20 21:27 08/30/20 21:27 08/30/20 21:27 08/30/20 21:27 - Notes Notes: Modified CONSTITUTIONAL [Vital signs reviewed, Patient appears fatigued and short of breath. HEAD [Atraumatic, Normocephalic.] EYES [Eyes are normal to inspection, No discharge from eyes, Extraocular muscles intact, Sclera are normal, Conjunctiva are normal.] ENT [Ears normal to inspection, Nose examination normal, Posterior pharynx normal, Mouth normal to inspection.] NECK [Normal ROM, No jugular venous distention, No meningeal signs, no carotid bruit.] RESPIRATORY CHEST [Chest is nontender, diffuse rhonchi present throughout all lung pre[place], patient is tachypneic. CARDIOVASCULAR [RRR, No murmurs, Normal S1 S2, No rub, No gallop.] ABDOMEN [Abdomen is nontender, No pulsatile masses, No other masses, Bowel sounds norm al, No distension, No peritoneal signs, No hernias.] BACK [There is no CVA Tenderness, There is no tenderness to palpation, Normal inspection.] UPPER EXTREMITY [Inspection normal, No cyanosis, No clubbing, No edema, 2+ radial pulses.] LOWER EXTREMITY [Inspection normal, No cyanosis, No clubbing, No edema, No calf tenderness, 2+ femoral pulses.] NEURO [No focal motor deficits, No focal sensory deficits, Speech normal.] SKIN [Skin is warm, Skin is dry, Skin is normal color.] PSYCHIATRIC [Normal affect. ] Course - Re-evaluation Re-evalutation: 08/31/20 02:26 Patient's O2 was turned off during examination and the patient's O2 sats were noted to drop from the 90s down to 87% - Vital Signs Vital signs: Temp Pulse Resp BP Pulse Ox 98.2 F 69 19 125/50 L 96 08/31/20 05:12 08/30/20 21:27 08/31/20 08:08 08/31/20 08:08 08/31/20 08:08 - Laboratory Results Result Diagrams: 08/30/20 21:45 08/30/20 21:45 Laboratory Results Interpreted: 08/30/20 08/30/20 08/30/20 21:45 21:45 21:45 WBC 15.5 H MCV 78 L MCH 26.4 L RDW 16.3 H Seg Neuts % (Manual) 88 H Band Neutrophils % 2 L Lymphocytes % (Manual) 6 L Abs Neuts (Manual) 14.0 H PT Sodium 134.1 L Potassium 3.3 L BUN 25 H Creatinine 1.53 H Est GFR ( Amer) 41 L Est GFR (MDRD) Non-Af 34 L Glucose 163 H Alkaline Phosphatase 127 H NT-Pro-B Natriuret Pep 1930 H Urine Glucose (UA) 08/30/20 08/31/20 21:45 00:35 WBC MCV MCH RDW Seg Neuts % (Manual) Band Neutrophils % Lymphocytes % (Manual) Abs Neuts (Manual) PT 23.6 H Sodium Potassium BUN Creatinine Est GFR ( Amer) Est GFR (MDRD) Non-Af Glucose Alkaline Phosphatase NT-Pro-B Natriuret Pep Urine Glucose (UA) >=500 H Critical Laboratory Results Reviewed: No Critical Results Attending or Supervising Physician who Reviewed Labs: MAGDY GREER IV - Radiology Results Critical Radiology Results Reviewed: Yes Attending or Supervising Physician who Reviewed Radiology: MAGDY GREER IV - Right basilar infiltrate - EKG Interpretation by Me Additional EKG results interpreted by me: 08/31/20 02:30 EKG obtained on 08/30/2020 at 2148 hrs. was interpreted by this MD. Findings: Sinus bradycardia, rate 57, normal axis, MN interval appears to be within normal limits, P waves preceding QRS complexes, QRS complexes appear narrow, QTC is 38 6, there are no obvious patterns of ST segment elevation, depression or reciprocal changes present to suggest acute myocardial ischemia or infarction. Impression: Sinus bradycardia with nonspecific ST segments when compared to prior EKG done 03/09/2019, the morphology of the 2 EKGs is grossly the same. - Consults Dr. Guzmán Time consulted: 04:50 - Dr. Guzmán agreed to admit pt Reason for consultation: 08/31/20 05:01 COPD exacerbation, pneumonia, hypoxia Critical Care Note - Critical Care Note Total time excluding time spent on procedures (mins): 120 - management of pt with hypoxia, pneumonia and COPD Discharge - Discharge Clinical Impression: Hypoxia, COPD exacerbation Pneumonia Qualifiers: Pneumonia type: due to unspecified organism Laterality: right Lung location: unspecified part of lung Qualified Code(s): J18.9 - Pneumonia, unspecified orga nism Condition: Stable Disposition: ADMITTED INPATIENT Admitting Provider: Arielle (Hospitalist) Unit Admitted: Telemetry
[2020-08-31 03:09] LABS: VENOUS BLOOD BASE EXCESS -2.4 mmol/L; VENOUS BLOOD HCO3 23.7 mmol/L (20-32); VENOUS BLOOD PCO2 45.8 mmHg (35-63); VENOUS BLOOD PH 7.33 (7.30-7.42)
[2020-08-31 03:18] LABS: PROTHROMBIN TIME 23.6 SEC (11.4-15.4)
[2020-08-31 03:46] LABS: A TYPE INFLUENZA AG NEGATIVE (NEGATIVE); B INFLUENZA AG NEGATIVE (NEGATIVE)
[2020-08-31] MEDS ORDERED: ACETAMINOPHEN 325 MG TABLET PO ONE (03:56)
[2020-08-31] MEDS ORDERED: POTASSIUM CHLORIDE 10 MEQ TABLET.ER PO ONE (04:57)
[2020-08-31] MEDS ORDERED: ACETAMINOPHEN 325 MG TABLET PO PRN (06:07)
[2020-08-31] MEDS ORDERED: ONDANSETRON 4 MG TAB.RAPDIS PO PRN (06:07)
[2020-08-31] MEDS ORDERED: PROMETHAZINE HCL INJ 25 MG/1 ML VIAL IV PRN (06:07)
[2020-08-31] MEDS ORDERED: TEMAZEPAM 7.5 MG CAPSULE PO PRN (06:07)
[2020-08-31] MEDS ORDERED: OXYCODONE-ACETAMINOPHEN 5-325 MG TABLET PO PRN (06:07)
[2020-08-31] MEDS ORDERED: IPRATROPIUM/ALBUTEROL 0.5-2.5 MG/3 ML AMPUL NEB PRN (06:07)
--- NOTE | 2020-08-31 06:07 | PDOC H&P ---
History of Present Illness Admission Date/PCP: 08/31/20 05:04 History of Present Illness: ZORAN JONES is a 64 year old female with past medical history of nonoxygen dependent COPD, CAD status post CABG, hypertension, anxiety, CHF, hyperlipidemia, presenting to ED complaining of worsening shortness of breath for the last 1 week. Patient is stating that at baseline she does not use o xygen and she is able to ambulate without getting short of breath, but for the last 1 week she is unable to do anything without getting short of breath, he is also complaining of nonproductive cough, but denies any fever, chills, nausea, chest pain, vomiting, abdominal pain, loss of smell, loss of taste, constipation, diarrhea or any urinary symptoms. Patient denies any recent hospitalization, travel or exposure to anybody with similar symptoms. In ED she was noted to be hypoxic on room air, with CBC showed neutrophilic leukocytosis, CMP elevated proBNP and mildly elevated troponin, chest x-ray positive for right basilar infiltrate. Patient was a started on empiric IV antibiotics and hospital was consulted for admission. Past Medical History Cardiac Medical History: Reports: Congestive Heart Failure, Myocardial Infarction, Hyperlipidema, Hypertension Pulmonary Medical History: Reports: Chronic Obstructive Pulmonary Disease (COPD) Endocrine Medical History: Reports: Diabetes Mellitus Type 2 Psychiatric Medical History: Reports: Depression Past Surgical History Past Surgical History: Reports: Cardiac Catheterization, Vascular Surgery - carotid Social History Smoking Status: Former Smoker Frequency of Alcohol Use: None Hx Recreational Drug Use: No Drugs: None Hx Prescription Drug Abuse: No Family History Family History: Reviewed & Not Pertinent Parental Family History Reviewed: Yes Children Family History Reviewed: Yes Sibling(s) Family History Reviewed.: Yes Medication/Allergy Home Medications: Amlodipine Besylate [Norvasc 5 mg Tablet] 5 mg PO Q12 03/08/19 Aspirin [Ecotrin 81 mg EC Tablet] 81 mg PO Q12 03/08/19 Atorvastatin Calcium [Lipitor 80 mg Tablet] 80 mg PO QHS 03/08/19 Citalopram Hydrobromide [Celexa 10 mg Tablet] 10 mg PO DAILY 03/08/19 Furosemide [Lasix 20 mg Tablet] 20 mg PO DAILY 03/08/19 Hydralazine HCl [Apresoline 50 mg Tablet] 50 mg PO Q8 03/08/19 Insulin Glargine,Hum.rec.anlog [Lantus Insulin 100 Unit/1 ml 10 ml] 16 units SQ QHS 03/08/19 Metoprolol Tartrate [Lopressor 25 mg Tablet] 12.5 mg PO Q12 03/08/19 Allergies/Adverse Reactions: Penicillins Allergy (Verified 08/30/20 21:50) Review of Systems Review of Systems: as per hpi Physical Exam Vital Signs: Temp Pulse Resp BP Pulse Ox 98.2 F 69 18 129/70 H 98 08/31/20 05:12 08/30/20 21:27 08/31/20 05:02 08/31/20 05:02 08/31/20 05:02 Intake & Output 08/29/20 08/30/20 08/31/20 06:59 06:59 06:59 Intake Total 50 Balance 50 Weight 72.3 kg General appearance: PRESENT: mild distress, obese Neck exam: ABSENT: carotid bruit, JVD, lymphadenopathy, thyromegaly Respiratory exam: PRESENT: crackles, decreased breath sounds, symmetrical, wheezes. ABSENT: rales, rhonchi Cardiovascular exam: PRESENT: RRR, other - Surgical scar from CABG.. ABSENT: diastolic murmur, rubs, systolic murmur Pulses: PRESENT: normal dorsalis pedis pul GI/Abdominal exam: PRESENT: normal bowel sounds, soft. ABSENT: distended, guarding, mass, organolmegaly, rebound, tenderness Neurological exam: PRESENT: alert, awake, oriented to person, oriented to place, oriented to time, oriented to situation, CN II-XII grossly intact. ABSENT: motor sensory deficit Psychiatric exam: PRESENT: anxious Results Laboratory Results: 08/30/20 21:45 08/30/20 21:45 08/30/20 08/30/20 08/31/20 21:45 21:45 00:35 WBC 15.5 H RBC 5.13 Hgb 13.6 Hct 40.0 MCV 78 L MCH 26.4 L MCHC 33.9 RDW 16.3 H Plt Count 180 Seg Neutrophils % Not Reportable VBG pH VBG pCO2 VBG HCO3 VBG Base Excess Sodium 134.1 L Potassium 3.3 L Chloride 98 Carbon Dioxide 28 Anion Gap 8 BUN 25 H Creatinine 1.53 H Est GFR ( Amer) 41 L Glucose 163 H Lactic Acid Calcium 9.8 Total Bilirubin 1.0 AST 32 Alkaline Phosphatase 127 H Total Protein 7.1 Albumin 4.0 Urine Color YELLOW Urine Appearance CLEAR Urine pH 6.0 Ur Specific Irving 1.007 Urine Protein NEGATIVE Urine Glucose (UA) >=500 H Urine Ketones NEGATIVE Urine Blood NEGATIVE Urine Nitrite NEGATIVE Ur Leukocyte Esterase NEGATIVE Urine WBC (Auto) 1 08/31/20 08/31/20 08/31/20 02:45 02:45 05:05 WBC RBC Hgb Hct MCV MCH MCHC RDW Plt Count Seg Neutrophils % VBG pH 7.33 VBG pCO2 45.8 VBG HCO3 23.7 VBG Base Excess -2.4 Sodium Potassium Chloride Carbon Dioxide Anion Gap BUN Creatinine Est GFR ( Amer) Glucose Lactic Acid 1.1 1.3 Calcium Total Bilirubin AST Alkaline Phosphatase Total Protein Albumin Urine Color Urine Appearance Urine pH Ur Specific Irving Urine Protein Urine Glucose (UA) Urine Ketones Urine Blood Urine Nitrite Ur Leukocyte Esterase Urine WBC (Auto) 08/30/20 08/30/20 21:45 21:45 Creatine Kinase 69 CK-MB (CK-2) 0.59 Troponin I 0.034 NT-Pro-B Natriuret Pep 1930 H Impressions: Chest X-Ray 08/30/20 21:31 IMPRESSION: Cardiomegaly with minimal right basilar infiltrate copyright 2010 [employer]- All Rights Reserved Assessment and Plan - Diagnosis (1) Acute respiratory failure with hypoxia Is this a current diagnosis for this admission?: Yes Plan: Most likely due to community-acquired pneumonia due to gram-positive including Streptococcus pneumonia complicated by underlying COPD. Denies any recent hospitalization, exposure to anybody with similar symptoms or recent travel. COVID-19 serology negative. Chest x-ray positive for right basilar infiltrate. Hypoxic on room air. Neutrophilic leukocytosis. Admit to floor, empiric broad-spectrum IV antibiotics, supplemental oxygen, as needed duo nebs, as needed BiPAP, steroids, flutter valve, incentive spirometry, sputum culture, blood culture, pulmonary toileting. (2) Diabetes Qualifiers: Diabetes mellitus type: type 2 Is this a current diagnosis for this admission?: Yes Plan: Controlled. Hemoglobin A1c 5.4% on 03/09/2019. Diabetic diet, hypoglycemia protocol, Accu-Chek. Basal, prandial and correctional insulin. Will obtain new hemoglobin A1c. Given age and comorbidities goal of hemoglobin A1c should be between 7 to 8%. Adjust meds as needed. Outpatient PCP follow-up. (3) Hypertension Is this a current diagnosis for this admission?: Yes Plan: Euvolemic. Normotensive. Resume home meds. Adjust meds as needed. Outpatient PCP follow-up. (4) CAD (coronary artery disease) Is this a current diagnosis for this admission?: Yes Plan: Denies any anginal symptoms. History of CABG. Resume home meds. Adjust meds as needed. Outpatient PCP and cardiology follow-up. (5) COPD exacerbation Is this a current diagnosis for this admission?: Yes Plan: History of nonoxygen COPD. Expiratory wheezing on physical examination. Diminished air entry bilaterally. Was noted to be hypoxic on room air. Plan as per #1. (6) Pneumonia Qualifiers: Pneumonia type: due to unspecified organism Laterality: right Lung locat ion: unspecified part of lung Qualified Code(s): J18.9 - Pneumonia, unspecified organism Is this a current diagnosis for this admission?: Yes Plan: As per #1. - Time Time Spent with patient: 35 or more minutes Anticipated Discharge Disposition: Home with Home Health Anticipated Discharge Timeframe: within 72 hours
[2020-08-31] MEDS ORDERED: GLUCAGON,HUMAN RECOMB 1 MG INJ IM PRN (06:13)
[2020-08-31] MEDS ORDERED: DEXTROSE 50%-WATER 25 GM/50 ML DISP.SYRIN IV PRN ×2 (06:13)
[2020-08-31] MEDS ORDERED: DEXTROSE 40% GEL 15 GM TUBE PO PRN ×2 (06:13)
--- NOTE | 2020-08-31 06:34 | EKG REPORT ---
SEVERITY:- BORDERLINE ECG - SINUS BRADYCARDIA BORDERLINE T ABNORMALITIES, LATERAL LEADS : Confirmed by: Josué Bosch MD 31-Aug-2020 06:34:14
--- NOTE | 2020-08-31 06:35 | EKG REPORT ---
SEVERITY:- ABNORMAL ECG - SINUS RHYTHM NONSPECIFIC T ABNORMALITIES, LATERAL LEADS : Confirmed by: Josué Bosch MD 31-Aug-2020 06:34:27
[2020-08-31] MEDS: ASPIRIN 81 MG TABLET, CHEWABLE PO SCH ×2 (06:38→10:35)
[2020-08-31] MEDS: IPRATROPIUM/ALBUTEROL 0.5-2.5 MG/3 ML AMPUL NEB SCH ×3 (08:13→20:59)
[2020-08-31] MEDS: INSULIN LISPRO 100 UNIT/ML 3 ML VIAL SUBCUT SCH ×4 (08:15→22:08)
[2020-08-31] MEDS ORDERED: FUROSEMIDE INJ/PF 20 MG/2 ML SDV IV SCH (10:00)
[2020-08-31] MEDS ORDERED: DOCUSATE SODIUM 100 MG CAPSULE PO SCH (10:00)
[2020-08-31] MEDS ORDERED: CITALOPRAM HYDROBROMIDE 20 MG TABLET PO SCH (10:00)
[2020-08-31] MEDS ORDERED: NORMAL SALINE 1000 ML 1,000 ML IV ONE (10:15)
[2020-08-31 10:31] LABS: HEMATOCRIT 36.7 % (36.0-47.0); HEMOGLOBIN 12.3 g/dL (12.0-15.5); MEAN CORPUSCULAR HEMOGLOBIN 26.5 pg (27.0-33.4); MEAN CORPUSCULAR HGB CONC 33.4 g/dL (32.0-36.0); MEAN CORPUSCULAR VOLUME 79 fl (80-97); PLATELET COUNT 112 10^3/uL (150-450); RED BLOOD COUNT 4.63 10^6/uL (3.72-5.28); WHITE BLOOD COUNT 6.9 10^3/uL (4.0-10.5)
[2020-08-31] MEDS: FAMOTIDINE 20 MG TABLET PO SCH ×2 (10:36→22:11)
[2020-08-31] MEDS: METOPROLOL TARTRATE 25 MG TABLET PO SCH ×2 (10:36→17:07)
[2020-08-31 10:51] LABS: ANION GAP 8 (5-19); BLOOD UREA NITROGEN 23 mg/dL (7-20); CALCIUM 9.5 mg/dL (8.4-10.2); CARBON DIOXIDE 22 mmol/L (22-30); CHLORIDE 108 mmol/L (98-107); GLUCOSE 281 mg/dL (75-110); POTASSIUM 3.9 mmol/L (3.6-5.0)
[2020-08-31] MEDS: HEPARIN SOD (PORCINE) 5,000 UNIT/ML 1 ML VIAL SUBCUT SCH ×2 (13:17→22:07)
[2020-08-31] MEDS: METHYLPREDNISOLONE INJ 40 MG/1 ML SDV IV SCH ×2 (13:24→22:12)
[2020-08-31] MEDS ORDERED: AZITHROMYCIN 200 MG in DEXTROSE 5%-WATER 100 ML IV SCH (22:00)
[2020-08-31] MEDS ORDERED: CEFTRIAXONE 1 GM/D5W RTU 1 GM/50 ML RTUPB IV SCH (22:00)
[2020-09-01 05:56] LABS: HEMATOCRIT 36.3 % (36.0-47.0); HEMOGLOBIN 12.4 g/dL (12.0-15.5); MEAN CORPUSCULAR HEMOGLOBIN 26.8 pg (27.0-33.4); MEAN CORPUSCULAR HGB CONC 34.1 g/dL (32.0-36.0); MEAN CORPUSCULAR VOLUME 79 fl (80-97); RED BLOOD COUNT 4.62 10^6/uL (3.72-5.28); RED CELL DISTRIBUTION WIDTH 16.1 % (11.5-14.0); WHITE BLOOD COUNT 7.6 10^3/uL (4.0-10.5)
[2020-09-01] MEDS: HEPARIN SOD (PORCINE) 5,000 UNIT/ML 1 ML VIAL SUBCUT SCH (06:03)
[2020-09-01] MEDS: METHYLPREDNISOLONE INJ 40 MG/1 ML SDV IV SCH (06:06)
[2020-09-01 06:22] LABS: ALBUMIN 3.1 g/dL (3.5-5.0); ALKALINE PHOSPHATASE 103 U/L (38-126); ANION GAP 6 (5-19); ASPARTATE AMINO TRANSFERASE 24 U/L (14-36); BILIRUBIN,DIRECT 0.1 mg/dL (0.0-0.4); BILIRUBIN,TOTAL 0.3 mg/dL (0.2-1.3); BLOOD UREA NITROGEN 25 mg/dL (7-20); CALCIUM 9.8 mg/dL (8.4-10.2); CARBON DIOXIDE 24 mmol/L (22-30); CHLORIDE 108 mmol/L (98-107); CHOLESTEROL 129.44 mg/dL (0-200); GLUCOSE 169 mg/dL (75-110); PHOSPHORUS 3.2 mg/dL (2.5-4.5); POTASSIUM 4.2 mmol/L (3.6-5.0); TOTAL PROTEIN 6.1 g/dL (6.3-8.2); TRIGLYCERIDES 56 mg/dL (<150)
[2020-09-01 06:32] LABS: DIRECT LDL 63 mg/dL (<100)
[2020-09-01 06:40] LABS: ABSOLUTE LYMPHOCYTES# (MANUAL) 0.3 10^3/uL (0.5-4.7); ABSOLUTE MONOCYTES # (MANUAL) 0.1 10^3/uL (0.1-1.4); BASOPHILS % (MANUAL) 0 % (0-2); EOSINOPHILS % (MANUAL) 0 % (0-6); LYMPHOCYTES % (MANUAL) 4 % (13-45); MONOCYTES % (MANUAL) 1 % (3-13); SEGMENTED NEUTROPHILS % (MAN) 95 % (42-78); TOTAL CELLS COUNTED 100
[2020-09-01 06:41] LABS: PLATELET CLUMPS PC; PLATELET COMMENT ADEQUATE; PLATELET COUNT 122 10^3/uL (150-450)
[2020-09-01] MEDS: INSULIN LISPRO 100 UNIT/ML 3 ML VIAL SUBCUT SCH (08:26)
[2020-09-01] MEDS: IPRATROPIUM/ALBUTEROL 0.5-2.5 MG/3 ML AMPUL NEB SCH (09:07)
[2020-09-01] MEDS ORDERED: FUROSEMIDE 20 MG TABLET PO SCH (10:00)
[2020-09-01] MEDS ORDERED: AMLODIPINE BESYLATE 5 MG TABLET PO SCH (10:00)
[2020-09-01] MEDS ORDERED: SUCRALFATE 1 GM TABLET PO SCH (10:30)
[2020-09-01] MEDS ORDERED: PREDNISONE 20 MG TABLET PO SCH (10:30)
[2020-09-01] MEDS ORDERED: METOPROLOL TARTRATE 25 MG TABLET PO SCH (10:30)
[2020-09-01] MEDS: FAMOTIDINE 20 MG TABLET PO SCH (10:39)
[2020-09-01] MEDS: ASPIRIN 81 MG TABLET, CHEWABLE PO SCH (10:39)
[2020-09-01] MEDS ORDERED: PAROXETINE HCL 20 MG TABLET PO SCH (11:00)
[2020-09-01 13:00] VITALS: BP 138/54
[2020-09-01] MEDS ORDERED: HYDRALAZINE HCL 50 MG TABLET PO SCH (14:00)
--- NOTE | 2020-09-01 19:43 | PDOC DISCHARGE SUMMARY ---
Impression - Admit/DC Date/PCP Admission Date/Primary Care Provider: 08/31/20 05:04 Discharge Date: 09/01/20 - Assessment Summary: ZORAN JONES is a 64 year old female with past medical history of COPD, CAD status post CABG, hypertension, anxiety, CHF, hyperlipidemia who presented to ED complaining of worsening shortness of breath for the last 1 week. In ED she was noted to be hypoxic on room air, with CBC showed neutrophilic leukocytosis, and chest x-ray positive for right basilar infiltrate. COVID negative. Patient was a started on empiric IV antibiotics and steroids for treatment of community acquired pneumonia and COPD exacerbation. She had a remarkably fast recovery and felt quite well on hospital day #2. She as successfully weaned off supplemental O2. She was discharged home on oral antibiotics/steroids to complete a 5 day course of therapy. - Additional Information Resuscitation Status: Full Code Discharge Diet: Cardiac Discharge Activity: Activity As Tolerated Referrals: [facility] [Provider Group] - 09/01/20 1:00 pm ([facility] IS CLOSED UNTIL SEP 07 ) Prescriptions: Losartan Potassium [Cozaar 50 mg Tablet] 50 mg PO DAILY #30 tablet Prednisone [Deltasone 20 mg Tablet] 20 mg PO DAILY #5 tablet Furosemide [Lasix 20 mg Tablet] 20 mg PO QAM #30 tablet Atorvastatin Calcium [Lipitor 80 mg Tablet] 80 mg PO QHS #30 tablet Metoprolol Tartrate [Lopressor 25 mg Tablet] 12.5 mg PO Q12 #30 tab Amlodipine Besylate [Norvasc 10 mg Tablet] 10 mg PO DAILY #30 tablet Omeprazole 40 mg PO BID #60 capsule. Paroxetine HCl [Paxil 20 mg Tablet] 20 mg PO DAILY #30 tablet Azithromycin [Zithromax 250 mg Tablet] 250 mg PO DAILY #5 tablet Home Medications: Sucralfate [Carafate 1 gm Tablet] 1 gm PO QID 08/31/20 Warfarin Sodium [Coumadin] 2.5 mg PO SUTUTHSA 08/31/20 Warfarin Sodium [Coumadin] 5 mg PO MOWEFR 08/31/20 Amlodipine Besylate [Norvasc 10 mg Tablet] 10 mg PO DAILY #30 tablet 09/01/20 Atorvastatin Calcium [Lipitor 80 mg Tablet] 80 mg PO QHS #30 tablet 09/01/20 Azithromycin [Zithromax 250 mg Tablet] 250 mg PO DAILY #5 tablet 09/01/20 Furosemide [Lasix 20 mg Tablet] 20 mg PO QAM #30 tablet 09/01/20 Losartan Potassium [Cozaar 50 mg Tablet] 50 mg PO DAILY #30 tablet 09/01/20 Metoprolol Tartrate [Lopressor 25 mg Tablet] 12.5 mg PO Q12 #30 tab 09/01/20 Omeprazole 40 mg PO BID #60 capsule. 09/01/20 Paroxetine HCl [Paxil 20 mg Tablet] 20 mg PO DAILY #30 tablet 09/01/20 Prednisone [Deltasone 20 mg Tablet] 20 mg PO DAILY #5 tablet 09/01/20 History of Present Illiness History of Present Illness: ZORAN JONES is a 64 year old female Physical Exam Vital Signs: Temp Pulse Resp BP Pulse Ox 97.9 F 52 L 16 138/54 H 100 09/01/20 12:58 09/01/20 12:58 09/01/20 12:58 09/01/20 12:58 09/01/20 12:58 Intake & Output 08/31/20 09/01/20 09/02/20 06:59 06:59 06:59 Intake Total 2220 1071 Balance 2220 1071 Weight 72.3 kg 66.9 kg Results Laboratory Results: WBC 7.6 10^3/uL (4.0-10.5) 09/01/20 05:16 RBC 4.62 10^6/uL (3.72-5.28) 09/01/20 05:16 Hgb 12.4 g/dL (12.0-15.5) 09/01/20 05:16 Hct 36.3 % (36.0-47.0) 09/01/20 05:16 MCV 79 fl (80-97) L 09/01/20 05:16 MCH 26.8 pg (27.0-33.4) L 09/01/20 05:16 MCHC 34.1 g/dL (32.0-36.0) 09/01/20 05:16 RDW 16.1 % (11.5-14.0) H 09/01/20 05:16 Plt Count 122 10^3/uL (150-450) L 09/01/20 05:16 Lymph % (Auto) Not Reportable 09/01/20 05:16 [place] % (Auto) Not Reportable 09/01/20 05:16 Eos % (Auto) Not Reportable 09/01/20 05:16 Baso % (Auto) Not Reportable 09/01/20 05:16 Absolute Neuts (auto) Not Reportable 09/01/20 05:16 Absolute Lymphs (auto) Not Reportable 09/01/20 05:16 Absolute Monos (auto) Not Reportable 09/01/20 05:16 Absolute Eos (auto) Not Reportable 09/01/20 05:16 Absolute Basos (auto) Not Reportable 09/01/20 05:16 Total Counted 100 09/01/20 05:16 Seg Neutrophils % Not Reportable 09/01/20 05:16 Seg Neuts % (Manual) 95 % (42-78) H 09/01/20 05:16 Band Neutrophils % 2 % (3-5) L 08/30/20 21:45 Lymphocytes % (Manual) 4 % (13-45) L 09/01/20 05:16 Monocytes % (Manual) 1 % (3-13) L 09/01/20 05:16 Eosinophils % (Manual) 0 % (0-6) 09/01/20 05:16 Basophils % (Manual) 0 % (0-2) 09/01/20 05:16 Abs Neuts (Manual) 7.2 10^3/uL (1.7-8.2) 09/01/20 05:16 Abs Lymphs (Manual) 0.3 10^3/uL (0.5-4.7) L 09/01/20 05:16 Abs Monocytes (Manual) 0.1 10^3/uL (0.1-1.4) 09/01/20 05:16 Absolute Eos (Manual) 0.0 10^3/uL (0.0-0.6) 09/01/20 05:16 Abs Basophils (Manual) 0.0 10^3/uL (0.0-0.2) 09/01/20 05:16 Clumped Platelets PC 09/01/20 05:16 Platelet Comment ADEQUATE 09/01/20 05:16 Polychromasia 1+ 08/30/20 21:45 Anisocytosis 1+ 08/30/20 21:45 PT 23.6 SEC (11.4-15.4) H 08/30/20 21:45 INR 2.10 08/30/20 21:45 VBG pH 7.33 (7.30-7.42) 08/31/20 02:45 VBG pCO2 45.8 mmHg (35-63) 08/31/20 02:45 VBG HCO3 23.7 mmol/L (20-32) 08/31/20 02:45 VBG Base Excess -2.4 mmol/L 08/31/20 02:45 Sodium 137.6 mmol/L (137-145) 09/01/20 05:16 Potassium 4.2 mmol/L (3.6-5.0) 09/01/20 05:16 Chloride 108 mmol/L (98-107) H 09/01/20 05:16 Carbon Dioxide 24 mmol/L (22-30) 09/01/20 05:16 Anion Gap 6 (5-19) 09/01/20 05:16 BUN 25 mg/dL (7-20) H 09/01/20 05:16 Creatinine 1.03 mg/dL (0.52-1.25) 09/01/20 05:16 Est GFR ( Amer) > 60 (>60) 09/01/20 05:16 Est GFR (MDRD) Non-Af 54 (>60) L 09/01/20 05:16 Glucose 169 mg/dL (75-110) H 09/01/20 05:16 POC Glucose 159 mg/dL (70-110) H 09/01/20 06:14 Hemoglobin A1c % 5.0 % (4.7-6.0) 09/01/20 05:16 Lactic Acid 2.4 mmol/L (0.7-2.1) H 08/31/20 17:19 Calcium 9.8 mg/dL (8.4-10.2) 09/01/20 05:16 Phosphorus 3.2 mg/dL (2.5-4.5) 09/01/20 05:16 Magnesium 2.2 mg/dL (1.6-2.3) 09/01/20 05:16 Total Bilirubin 0.3 mg/dL (0.2-1.3) 09/01/20 05:16 Direct Bilirubin 0.1 mg/dL (0.0-0.4) 09/01/20 05:16 Neonat Total Bilirubin Not Reportable 09/01/20 05:16 Neonat Direct Bilirubin Not Reportable 09/01/20 05:16 Neonat Indirect Bili Not Reportable 09/01/20 05:16 AST 24 U/L (14-36) 09/01/20 05:16 ALT 17 U/L (<35) 09/01/20 05:16 Alkaline Phosphatase 103 U/L (38-126) 09/01/20 05:16 Creatine Kinase 69 U/L (30-135) 08/30/20 21:45 CK-MB (CK-2) 0.59 ng/mL (<4.55) 08/30/20 21:45 Troponin I < 0.012 ng/mL 08/31/20 12:16 NT-Pro-B Natriuret Pep 1930 pg/mL (<125) H 08/30/20 21:45 Total Protein 6.1 g/dL (6.3-8.2) L 09/01/20 05:16 Albumin 3.1 g/dL (3.5-5.0) L 09/01/20 05:16 Triglycerides 56 mg/dL (<150) 09/01/20 05:16 Cholesterol 129.44 mg/dL (0-200) 09/01/20 05:16 LDL Cholesterol Direct 63 mg/dL (<100) 09/01/20 05:16 VLDL Cholesterol 11.0 mg/dL (10-31) 09/01/20 05:16 HDL Cholesterol 54 mg/dL (>40) 09/01/20 05:16 Urine Color YELLOW 08/31/20 00:35 Urine Appearance CLEAR 08/31/20 00:35 Urine pH 6.0 (5.0-9.0) 08/31/20 00:35 Ur Specific [place] 1.007 08/31/20 00:35 Urine Protein NEGATIVE mg/dL (NEGATIVE) 08/31/20 00:35 Urine Glucose (UA) >=500 mg/dL (NEGATIVE) H 08/31/20 00:35 Urine Ketones NEGATIVE mg/dL (NEGATIVE) 08/31/20 00:35 Urine Blood NEGATIVE (NEGATIVE) 08/31/20 00:35 Urine Nitrite NEGATIVE (NEGATIVE) 08/31/20 00:35 Urine Bilirubin NEGATIVE (NEGATIVE) 08/31/20 00:35 Urine Urobilinogen NEGATIVE mg/dL (<2.0) 08/31/20 00:35 Ur Leukocyte Esterase NEGATIVE (NEGATIVE) 08/31/20 00:35 Urine WBC (Auto) 1 /HPF 08/31/20 00:35 Urine Bacteria (Auto) TRACE /HPF 08/31/20 00:35 Squamous Epi Cells Auto 2 /HPF 08/31/20 00:35 Urine Ascorbic Acid NEGATIVE (NEGATIVE) 08/31/20 00:35 Influenza A (Rapid) NEGATIVE (NEGATIVE) 08/31/20 02:50 Influenza A (RT-PCR) NEGATIVE (NEGATIVE) 08/31/20 02:50 Influenza B (Rapid) NEGATIVE (NEGATIVE) 08/31/20 02:50 Influenza B (RT-PCR) NEGATIVE (NEGATIVE) 08/31/20 02:50 RSV (RT-PCR) NEGATIVE (NEGATIVE) 08/31/20 02:50 SARS-CoV-2 Rap RNA(RT-PCR) NEGATIVE (NEGATIVE) 08/31/20 02:50 08/30/20 08/31/20 08/31/20 21:45 06:17 12:16 CK-MB (CK-2) 0.59 Troponin I 0.034 0.030 < 0.012 NT-Pro-B Natriuret Pep 1930 H Impressions: Chest X-Ray 08/30/20 21:31 IMPRESSION: Cardiomegaly with minimal right basilar infiltrate copyright 2011 [employer]- All Rights Reserved Stroke Is this a Stroke Patient?: No Acute Heart Failure Is this a Heart Failure Patient?: No
[2020-09-01] MEDS ORDERED: ATORVASTATIN CALCIUM 80 MG TABLET PO SCH (22:00)
[2020-09-01] MEDS ORDERED: WARFARIN SODIUM 2.5 MG TABLET PO SCH (22:00)
== END 2020-09-01 13:25 | disposition home or self-care (01) | DRG 194 ==
LOC: ER 21:20 → EH 08-31 05:04 → 4W 08-31 10:56
PROVIDERS: ADMIT Internal Medicine; ATTEND Hospitalist
DX: J15.4 Pneumonia due to other streptococci (principal); J44.0 Chronic obstructive pulmonary disease with (acute) lower respiratory infection; J44.1 Chronic obstructive pulmonary disease with (acute) exacerbation; J18.9 Pneumonia, unspecified organism; Z20.828 Contact with and (suspected) exposure to other viral communicable diseases; I25.10 Atherosclerotic heart disease of native coronary artery without angina pectoris; I10 Essential (primary) hypertension; F41.9 Anxiety disorder, unspecified; E11.9 Type 2 diabetes mellitus without complications; E78.5 Hyperlipidemia, unspecified; R09.02 Hypoxemia; I25.2 Old myocardial infarction; Z95.1 Presence of aortocoronary bypass graft; Z79.899 Other long term (current) drug therapy; Z87.891 Personal history of nicotine dependence; Z79.82 Long term (current) use of aspirin; Z79.4 Long term (current) use of insulin; Z88.0 Allergy status to penicillin
CPT/HCPCS: 36415; 71045; 80048; 80053; 80061; 81001; 82550; 82553; 82803; 82962; 83036; 83605; 83735; 83880; 84100; 84484; 85025; 85027; 85610; 87040; 87077; 87150; 87804; 93005; 93010; 94640; 96361; 96365; 96367; 96375; 99285; 0241U; C9803; J0456; J0696; J1100; J1815; J2920; J7030; J7060; J7512; J7614